=== PATIENT | female | born 1985 | race Caucasian/White ===

== ENCOUNTER 2016-07-02 11:17 | Emergency (ER) | payer SELFPAY ==
[2016-07-02 11:37] VITALS: BP 123/77
--- NOTE | 2016-07-02 12:03 | ER Document Report ---
ED Seizure - General Chief Complaint: Probable Seizure Stated Complaint: POSSIBLE SEIZURE Time Seen by Provider: 07/02/16 11:57 Notes: The patient is a 31-year-old female, past medical history seizures (on Neurontin 900 mg tid daily and CBD), presents after 6 brief witnessed generalized seizures while she was trying to obtain Medicaid today. She said that she had loss of bowel and bladder after the seizures and a brief postictal period. She did not take her Neurontin or CBD this morning until ~5 min before the seizures. Her last seizure was 2 months ago. She was following with Dr. Haro for medication adjustments. Denies head injury, chest pain, shortness of breath, nausea, vomiting, focal weakness, numbness, tingling, back pain or abdominal pain. - Related Data Allergies/Adverse Reactions: acetaminophen [From Tylenol] Allergy (Verified 11/09/15 20:57) adhesive [Adhesive] Allergy (Verified 11/09/15 20:57) aspirin [Aspirin] Allergy (Verified 11/09/15 20:57) iodine [Iodine] Allergy (Verified 11/09/15 20:57) latex [Latex] Allergy (Verified 11/09/15 20:57) metaxalone [From Skelaxin] Allergy (Verified 11/09/15 20:57) NSAIDS (Non-Steroidal Anti-Inflamma Allergy (Verified 07/02/16 11:33) Past Medical History - General Information source: Patient - Social History Smoking Status: Current Every Day Smoker Family History: Reviewed & Not Pertinent Patient has suicidal ideation: No Patient has homicidal ideation: No Endocrine Medical History: Reports: Hx Hypothyroidism Renal/ Medical History: Denies: Hx Peritoneal Dialysis Psychiatric Medical History: Reports: Hx Anxiety, Hx Bipolar Disorder, Hx Depression - bipolar, anxiety, PTSD, agorophobia, Hx Post Traumatic Stress Disorder - Immunizations Hx Diphtheria, Pertussis, Tetanus Vaccination: No Review of Systems - Review of Systems Notes: REVIEW OF SYSTEMS: CONSTITUTIONAL: -fevers, -chills EENT: -eye pain, -difficulty swallowing, -nasal congestion CARDIOVASCULAR:-chest pain, -syncope. RESPIRATORY: -cough, -SOB GASTROINTESTINAL: -abdominal pain, - nausea, -vomiting, -diarrhea GENITOURINARY: -dysuria, -hematuria MUSCULOSKELETAL: -back pain, -neck pain SKIN: -rash or skin lesions. HEMATOLOGIC: -easy bruising or bleeding. LYMPHATIC: -swollen, enlarged glands. NEUROLOGICAL: -altered mental status or loss of consciousness, -headache, + seizures PSYCHIATRIC: -anxiety, -depression. ALL OTHER SYSTEMS REVIEWED AND NEGATIVE. Physical Exam - Vital signs Vitals: Pulse Resp BP Pulse Ox 113 H 20 123/77 96 07/02/16 11:33 07/02/16 11:33 07/02/16 11:33 07/02/16 11:33 - Notes Notes: PHYSICAL EXAMINATION: GENERAL: Well-appearing, well-nourished and in no acute distress. Appears mildly anxious. HEAD: Atraumatic, normocephalic. EYES: Pupils equal round and reactive to light, extraocular movements intact, sclera anicteric, conjunctiva are normal. ENT: nares patent, oropharynx clear without exudates. Moist mucous membranes. NECK: Normal range of motion, supple without lymphadenopathy LUNGS: Breath sounds clear to auscultation bilaterally and equal. No wheezes rales or rhonchi. HEART: Tachycardia. ABDOMEN: Soft, nontender, normoactive bowel sounds. No guarding, no rebound. No masses appreciated. EXTREMITIES: Normal range of motion, no pitting or edema. No cyanosis. NEUROLOGICAL: Cranial nerves grossly intact. Normal speech, normal gait. Normal sensory, motor, and reflex exams. SKIN: Warm, Dry, normal turgor, no rashes or lesions noted. Course - Re-evaluation Re-evalutation: Patient back to baseline. Accu-Chek normal. Because she is having infrequent seizures, will not adjust her antiseizure medications. No Neurologist process control engineer today at [facility]. Provided her with follow-up at neurologist. Given return precautions. Tachycardia is from her mild anxiety. - Vital Signs Vital signs: Temp Pulse Resp BP Pulse Ox 98.1 F 113 H 20 123/77 96 07/02/16 11:38 07/02/16 11:33 07/02/16 11:33 07/02/16 11:33 07/02/16 11:33 Discharge - Discharge Clinical Impression: Recurrent seizures Condition: Good Disposition: HOME, SELF-CARE Additional Instructions: Always take your Neurontin as prescribed. Follow up with your primary care physician and neurologist. Seizure, Known Epileptic You have had a seizure. Seizures may "break through" in an epileptic due to stress of infection or injury, a change in blood chemistry, or drug and alcohol use. Another common cause is failure to take medication as prescribed. Your doctor has evaluated your situation for the likely cause of this seizure. It is important that you follow his advice concerning any medication changes and follow-up care. Further testing of anti-seizure medication levels in your blood may be necessary. If you have a taxicab driver's license, it's important that you DO NOT DRIVE until given permission by your physician. This seizure must be reported to the taxicab driver 's license bureau. Call the doctor or return if seizures recur, or if new or unusual symptoms arise -- such as severe headache, confusion, excessive sleepiness, local weakness or numbness, neck stiffness, or fever. Referrals: RUI HOFFMAN MD [ACTIVE STAFF] - Follow up as needed EDWINA PEREYRA MD [EMERITUS] - Follow up as needed CARRI RAMOS MD [ACTIVE STAFF] - Follow up as needed
== END 2016-07-02 12:16 | disposition home or self-care (01) ==
LOC: ER 11:17
DX: G40.909 Epilepsy, unspecified, not intractable, without status epilepticus (principal); F41.9 Anxiety disorder, unspecified; R00.0 Tachycardia, unspecified; F17.200 Nicotine dependence, unspecified, uncomplicated; Z79.899 Other long term (current) drug therapy; Z88.6 Allergy status to analgesic agent; Z91.048 Other nonmedicinal substance allergy status; Z91.040 Latex allergy status; Z88.8 Allergy status to other drugs, medicaments and biological substances
CPT/HCPCS: 82962; 99284

== ENCOUNTER 2016-10-08 23:30 | Emergency (ER) | payer SELFPAY ==
[2016-10-09] MEDS ORDERED: ONDANSETRON HCL INJ/PF 4 MG/2 ML SDV IV ONE (00:02)
[2016-10-09] MEDS ORDERED: HYDROMORPHONE HCL INJ/PF 2 MG/ML AMPULE IV ONE (00:02)
--- NOTE | 2016-10-09 00:02 | ER Document Report ---
ED General - General Chief Complaint: Psych Problem Stated Complaint: POSSIBLE SEIZURE Time Seen by Provider: 10/08/16 23:45 Mode of Arrival: Stretcher Information source: Patient Notes: This is a 31-year-old female with a history of a seizure disorder status post recent hospitalization at [facility] for seizures, history of anxiety and PTSD , history of ovarian cysts who presents to the emergency room after seizure at home. Patient is also concerned that she has a pelvic infection. She is on doxycycline at this time and was given IM ceftriaxone while she was hospitalized at [facility]. She also complains of dental caries. TRAVEL OUTSIDE OF THE [place] IN LAST 30 DAYS: No - HPI Onset: Last week Onset/Duration: Gradual Quality of pain: Dull Severity: Moderate Pain Level: 2 Associated symptoms: denies: Chest pain, Fever, Shortness of breath Exacerbated by: Denies Relieved by: Denies Similar symptoms previously: Yes Recently seen / treated by doctor: Yes - Related Data Allergies/Adverse Reactions: acetaminophen [From Tylenol] Allergy (Verified 11/09/15 20:57) adhesive [Adhesive] Allergy (Verified 11/09/15 20:57) aspirin [Aspirin] Allergy (Verified 11/09/15 20:57) iodine [Iodine] Allergy (Verified 11/09/15 20:57) latex [Latex] Allergy (Verified 11/09/15 20:57) metaxalone [From Skelaxin] Allergy (Verified 11/09/15 20:57) NSAIDS (Non-Steroidal Anti-Inflamma Allergy (Verified 07/02/16 11:33) Past Medical History - General Information source: Patient - Social History Smoking Status: Never Smoker Cigarette use (# per day): No Chew tobacco use (# tins/day): No Frequency of alcohol use: None Drug Abuse: None Lives with: Family Family History: Reviewed & Not Pertinent Patient has suicidal ideation: No Patient has homicidal ideation: No - Past Medical History Cardiac Medical History: Reports: None Pulmonary Medical History: Reports: None Endocrine Medical History: Reports: Hx Hypothyroidism Renal/ Medical History: Denies: Hx Peritoneal Dialysis Malignancy Medical History: Reports: None GI Medical History: Reports: None Musculoskeltal Medical History: Reports Hx Arthritis Psychiatric Medical History: Reports: Hx Anxiety, Hx Bipolar Disorder, Hx Depression - bipolar, anxiety, PTSD, agorophobia, Hx Post Traumatic Stress Disorder Traumatic Medical History: Reports: Other Infectious Medical History: Reports: None Surgical Hx: Negative - Immunizations Hx Diphtheria, Pertussis, Tetanus Vaccination: No Review of Systems - Review of Systems Constitutional: denies: Chills, Fever EENT: See HPI Cardiovascular: No symptoms reported Respiratory: No symptoms reported Gastrointestinal: No symptoms reported Genitourinary: No symptoms reported Female Genitourinary: See HPI Musculoskeletal: No symptoms reported Skin: No symptoms reported Hematologic/Lymphatic: No symptoms reported Neurological/Psychological: See HPI Physical Exam - Vital signs Notes: Physical exam: GENERAL: 31-year-old female, alert and oriented 3, no acute distress HEAD: Atraumatic, normocephalic. EYES: Pupils equal round and reactive to light, extraocular movements intact, sclera anicteric, conjunctiva are normal. ENT: TMs normal, nares patent, oropharynx clear without exudates. Moist mucous membranes. NECK: Normal range of motion, supple without lymphadenopathy or JVD. LUNGS: Breath sounds clear to auscultation bilaterally and equal. No wheezes rales or rhonchi. HEART: Regular rate and rhythm without murmurs, rubs or gallops. ABDOMEN: Soft, normoactive bowel sounds. No tenderness to palpation. No guarding, no rebound. No masses appreciated. Vaginal: External genitalia normal, scant whitish discharge in vault, cervix looks good, no cervical motion tenderness, no adnexal tenderness or adnexal masses. Vaginal exam performed in the presence of a electrician yard (the nurse). EXTREMITIES: Normal range of motion, no pitting or edema. No clubbing or cyanosis. NEUROLOGICAL: Cranial nerves II through XII grossly intact. Normal speech, normal gait. PSYCH: Normal mood, normal affect. SKIN: Warm, Dry, normal turgor, no rashes or lesions noted. Bedside ultrasound: No obvious pelvic cysts or pelvic masses with transabdominal approach. No hydronephrosis, normal gallbladder. Course - Re-evaluation Re-evalutation: 10/09/16 02:49 Patient was given IV Keppra in the emergency room and observed. She was given IV pain medicine and nausea medicine. She is done well. I discussed the results of the pelvic exam with her. She was concerned that she might have an STD: PCR test were negative. In any event , she was recently treated with ceftriaxone and is currently on doxycycline. I have recommended she follow-up with the primary care clinic: I have given the number of the [facility]. As far as her dental work: She has dental caries but no obvious acute dental infection. She is already on doxycycline. I have given her a referral to the [facility] clinic. Discharge - Discharge Clinical Impression: Seizure Condition: Stable Disposition: HOME, SELF-CARE Instructions: Seizure, Known Epileptic ([facility]) Additional Instructions: Recommendations: Rest, drink plenty of fluids. Increase in the Keppra 2000 mg twice daily. Take the pain medicine as needed. The pain medicine you're taking prescribed as a narcotic. There are several important things you should know about this medicine: 1. Taking narcotics for too long can lead to physical and mental dependence. Take this medicine only if really needed and in the lowest quantity to achieve pain relief. 2. Do not drink alcohol while on this medicine. Alcohol interacts with narcotics and the combination can be dangerous. 3. Do not drive or operate machinery while on this medicine. 4. Narcotics do cause constipation, so drink plenty of fluids and daily stool softeners. Prescriptions: Hydromorphone HCl [Dilaudid 2 mg Tablet] 2 mg PO Q4HP PRN #25 tablet PRN Reason: Levetiracetam [Keppra 500 mg Tablet] 1,000 mg PO Q12 #120 tablet Referrals: [facility] [Provider Group] - Follow up as needed [facility] [Provider Group] - Follow up as needed
[2016-10-09] MEDS ORDERED: LEVETIRACETAM 1000 MG/NACL-ISO 1,000 MG/100 ML RTUPB IV ONE (00:03)
[2016-10-09 02:28] LABS: CHLAM PCR NOT DETECTED (NOT DETECT)
[2016-10-09 03:11] VITALS: BP 119/78
== END 2016-10-09 03:10 | disposition home or self-care (01) ==
LOC: ER 23:30
DX: G40.919 Epilepsy, unspecified, intractable, without status epilepticus (principal); F41.9 Anxiety disorder, unspecified
CPT/HCPCS: 99284; 96375; 96365; 87210; 87491; 87591; J1170; J2405; J1953

== ENCOUNTER 2016-12-06 11:48 | Inpatient (IN) | payer SELFPAY ==
[2016-12-06] MEDS ORDERED: NALOXONE HCL INJ 2 MG/2 ML DISP.SYRIN ONE (11:50)
[2016-12-06] MEDS ORDERED: ETOMIDATE INJ/PF 20 MG/10 ML SDV IV ONE ×2 (11:54→15:36)
[2016-12-06] MEDS ORDERED: PROPOFOL 100 ML IV ONE ×2 (12:01→15:46)
--- NOTE | 2016-12-06 12:11 | ER Document Report ---
ED General - General Stated Complaint: POSSIBLE OVERDOSE Time Seen by Provider: 12/06/16 12:09 TRAVEL OUTSIDE OF THE [place] IN LAST 30 DAYS: No - HPI Patient complains to provider of: Overdose Notes: According EMS patient coming in for an overdose. Patient according to EMS family reported sleepy for the last few days then had a verbal altercation took a handful of pills and was found 30 minutes later to be altered. EMS upon arrival states ingestion was approximately 45 minutes prior to her arrival patient is maintaining her respiratory drive normal O2 saturation on examination however GCS is very low patient has no corneal reflexes pupils are enlarged and reactive to light. Patient is not responding to any painful stimuli patient is also nonverbal no spontaneous eye opening. No change after Narcan decision was made to intubate the patient for airway protection no family at bedside at this time therefore HPI is limited - Related Data Allergies/Adverse Reactions: acetaminophen [From Tylenol] Allergy (Verified 11/09/15 20:57) adhesive [Adhesive] Allergy (Verified 11/09/15 20:57) aspirin [Aspirin] Allergy (Verified 11/09/15 20:57) iodine [Iodine] Allergy (Verified 11/09/15 20:57) latex [Latex] Allergy (Verified 11/09/15 20:57) metaxalone [From Skelaxin] Allergy (Verified 11/09/15 20:57) NSAIDS (Non-Steroidal Anti-Inflamma Allergy (Verified 07/02/16 11:33) Home Medications: Current Home Medications Amphetamine Salts 20 mg PO Q8 12/06/16 [History] Butalb/Acetaminophen/Caffeine [Tgvxgb-Qiphlnmo-Ycpg 50-325-40] 2 tab PO Q8HP PRN 12/06/16 [History] Carisoprodol [Soma 350 Mg Tablet] 350 mg PO Q8 12/06/16 [History] Citalopram Hydrobromide [Celexa 40 mg Tablet] 40 mg PO DAILY 12/06/16 [History] Duloxetine HCl [Cymbalta] 60 mg PO Q12 12/06/16 [History] Fluconazole [Diflucan] 200 mg PO Q2 12/06/16 [History] Gabapentin [Neurontin 300 mg Capsule] 900 mg PO Q8 12/06/16 [History] Past Medical History - Social History Smoking Status: Unknown if Ever Smoked Family History: Reviewed & Not Pertinent Endocrine Medical History: Reports: Hx Hypothyroidism Renal/ Medical History: Denies: Hx Peritoneal Dialysis Musculoskeltal Medical History: Reports Hx Arthritis Psychiatric Medical History: Reports: Hx Anxiety, Hx Bipolar Disorder, Hx Depression - bipolar, anxiety, PTSD, agorophobia, Hx Post Traumatic Stress Disorder - Immunizations Hx Diphtheria, Pertussis, Tetanus Vaccination: No Review of Systems - Review of Systems -: Yes ROS unobtainable due to patient's medical condition Physical Exam - Vital signs Vitals: Resp BP Pulse Ox 18 105/66 100 12/06/16 11:52 12/06/16 11:52 12/06/16 11:52 Interpretation: Normal - General General appearance: Unresponsive - HEENT Head: Normocephalic, Atraumatic Eyes: Normal Conjunctiva: Normal Cornea: Normal Pupils: Dilated - Responsive to light - Respiratory Respiratory status: No respiratory distress Chest status: Nontender Breath sounds: Normal Chest palpation: Normal - Cardiovascular Rhythm: Regular Heart sounds: Normal auscultation Murmur: No - Abdominal Inspection: Normal Distension: No distension Bowel sounds: Normal Tenderness: Other - Abdomen soft Organomegaly: No organomegaly - Back Back: Normal, Nontender - Extremities General upper extremity: Normal inspection, Nontender, Normal color, Normal ROM , Normal temperature General lower extremity: Nontender, Normal color, Normal ROM, Normal temperature , Normal weight bearing. No: Normal inspection - Superficial lacerations to the thigh, Kala's sign - Neurological Neuro grossly intact: Yes Tadeo Coma Scale Eye Opening: None Daniels Coma Scale Verbal: None Tadeo Coma Scale Motor: Withdraws to Pain - Minimal spots after Narcan Daniels Coma Scale Total: 6 Speech: Normal - Skin Skin Temperature: Warm Skin Moisture: Dry Skin Color: Normal Course - Re-evaluation Re-evalutation: 12/06/16 12:10 Patient presents with a polysubstance overdose. Unknown substance or quantity. Patient's GCS less than 8 and therefore after no improvement with Narcan decision was made to intubate patient. Patient does have a seizure history less likely status at this time. 12/06/16 15:29 Urine drug screen positive for multiple substances with elevated Tylenol level discussed with hospitalist will admit to the ICU - Vital Signs Vital signs: Temp Pulse Resp BP Pulse Ox 19 142/98 H 100 12/06/16 15:01 12/06/16 15:01 12/06/16 15:01 - Laboratory Result Diagrams: 12/06/16 12:02 12/06/16 12:02 Laboratory results interpreted by me: 12/06/16 12/06/16 12/06/16 12:02 12:02 12:02 RBC 3.38 L Hgb 10.6 L Hct 30.1 L Plt Count 146 L Potassium 3.5 L Chloride 108 H Carbon Dioxide 21 L Lactic Acid < 0.5 L Calcium 8.3 L Creatine Kinase Total Protein 5.9 L Lipase 18.6 L Urine Ketones Salicylates < 1.0 L Acetaminophen 40 H Phenytoin 12/06/16 12/06/16 12/06/16 12:02 12:02 12:02 RBC Hgb Hct Plt Count Potassium Chloride Carbon Dioxide Lactic Acid Calcium Creatine Kinase 168 H Total Protein Lipase Urine Ketones TRACE H Salicylates Acetaminophen Phenytoin < 3.0 L Procedures - Intubation Orotracheal Airway evaluation: Normal anatomy Mallampati Classification: Class 1 Medications: Etomidate, Other - Rocuronium Intubation method: Orotracheal Blade size: 3 Equipment used: Glidescope ETT size: 7.0 ETT secured at: Lips ETT secured at (cm): 22 Breath Sounds after Intubation: Equal Post Intubation Xray: Yes Intubation Complications: No complications Critical Care Note - Critical Care Note Total time excluding time spent on procedures (mins): 35 Comments: Multiple evaluations for overdose requiring mechanical ventilation Discharge - Discharge Clinical Impression: Elevated Tylenol level Polysubstance overdose Qualifiers: Encounter type: initial encounter Injury intent: undetermined intent Qualified Code(s): T50.904A - Poisoning by unspecified drugs, medicaments and biological substances, undetermined, initial encounter Condition: Stable Disposition: ADMITTED INPATIENT Unit Admitted: ICU
[2016-12-06 12:28] LABS: VENOUS BLOOD BASE EXCESS -2.3 mmol/L; VENOUS BLOOD HCO3 22.3 mmol/L (20-32); VENOUS BLOOD PCO2 37.7 mmHg (35-63); VENOUS BLOOD PH 7.39 (7.30-7.42)
[2016-12-06 12:29] LABS: ABSOLUTE EOSINOPHILS # (AUTO) 0.1 10^3/uL (0.0-0.6); ABSOLUTE LYMPHOCYTES (AUTO) 1.3 10^3/uL (0.5-4.7); ABSOLUTE MONOCYTES (AUTO) 0.6 10^3/uL (0.1-1.4); ABSOLUTE NEUT (AUTO) 4.1 10^3/uL (1.7-8.2); BASOPHILS % (AUTO) 0.5 % (0-2); EOSINOPHILS % (AUTO) 0.8 % (0-6); HEMATOCRIT 30.1 % (36.0-47.0); HEMOGLOBIN 10.6 g/dL (12.0-15.5); HGB HCT DIFFERENCE 1.7; MEAN CORPUSCULAR HEMOGLOBIN 31.5 pg (27.0-33.4); MEAN CORPUSCULAR HGB CONC 35.4 g/dL (32.0-36.0); MEAN CORPUSCULAR VOLUME 89 fl (80-97); RED BLOOD COUNT 3.38 10^6/uL (3.72-5.28); RED CELL DISTRIBUTION WIDTH 13.5 % (11.5-14.0); SEGMENTED NEUTROPHILS % (AUTO) 67.7 % (42-78)
--- NOTE | 2016-12-06 12:41 | RADIOLOGY REPORT (SQ) ---
EXAM DESCRIPTION: CT HEAD WITHOUT COMPLETED DATE/TIME: 12/06/2016 12:28 pm REASON FOR STUDY: ams sz hx overdose COMPARISON: 10/19/2015 TECHNIQUE: Axial images acquired through the brain without intravenous contrast. Images reviewed wi th bone, brain and subdural windows. Images stored on PACS. All CT scanners at this facility use dose modulation, iterative reconstruction, and/or weight based d osing when appropriate to reduce radiation dose to as low as reasonably achievable (ALARA). [facility]: Dose Right [facility]: CareDose [facility]: Dose Right [facility]: Teradose 4D [facility]: Smart Moasis RADIATION DOSE: Up-to-date CT equipment and radiation dose reduction techniques were employed. CTDIv ol: 64.6 mGy. DLP: 1163 mGy-cm. mGy. LIMITATIONS: None. FINDINGS: VENTRICLES: Normal size and contour. CEREBRUM: No masses. No hemorrhage. No midline shift. No evidence for acute infarction. Normal gra y/white matter differentiation. No areas of low density in the white matter. CEREBELLUM: No masses. No hemorrhage. No alteration of density. No evidence for acute infarction. EXTRAAXIAL SPACES: No fluid collections. No masses. ORBITS AND GLOBE: No intra- or extraconal masses. Normal contour of globe without masses. CALVARIUM: No fracture. PARANASAL SINUSES: There is opacification of a few of the ethmoid air cells. There is thickening of the nasal mucosa on the right. SOFT TISSUES: No mass or hematoma. OTHER: No other significant finding. IMPRESSION: 1. There is no acute intracranial pathology. 2. There is mild sinus disease. EVIDENCE OF ACUTE STROKE: NO. COMMENT: Quality ID # [id number]: Final reports with documentation of one or more dose reduction techniques (e.g., Automated exposure control, adjustment of the mA and/or kV according to patient size, use of iterative reconstruction technique) TECHNICAL DOCUMENTATION: JOB ID: [id number] [employer]- All Rights Reserved
--- NOTE | 2016-12-06 12:42 | RADIOLOGY REPORT (SQ) ---
EXAM DESCRIPTION: CHEST SINGLE VIEW COMPLETED DATE/TIME: 12/06/2016 12:32 pm REASON FOR STUDY: t1 post intubation COMPARISON: Chest CT 07/04/2014 EXAM PARAMETERS: NUMBER OF VIEWS: One view. TECHNIQUE: Single frontal radiographic view of the chest acquired. RADIATION DOSE: NA LIMITATIONS: None. FINDINGS: LUNGS AND PLEURA: No opacities, masses or pneumothorax. No pleural effusion. MEDIASTINUM AND HILAR STRUCTURES: No masses. Contour normal. HEART AND VASCULAR STRUCTURES: Heart normal in size. Normal vasculature. BONES: No acute findings. HARDWARE: An endotracheal tube has its tip 4 cm above the berenice. OTHER: No other significant finding. IMPRESSION: Endotracheal tube placement. TECHNICAL DOCUMENTATION: JOB ID: [id number]
[2016-12-06 12:54] LABS: ALANINE AMINOTRANSFERASE 41 U/L (9-52); ALBUMIN 3.5 g/dL (3.5-5.0); ALKALINE PHOSPHATASE 43 U/L (38-126); ANION GAP 16 (5-19); ASPARTATE AMINO TRANSFERASE 31 U/L (14-36); BILIRUBIN,DIRECT 0.3 mg/dL (0.0-0.4); BILIRUBIN,TOTAL 0.3 mg/dL (0.2-1.3); BLOOD UREA NITROGEN 8 mg/dL (7-20); CALCIUM 8.3 mg/dL (8.4-10.2); CARBON DIOXIDE 21 mmol/L (22-30); CHLORIDE 108 mmol/L (98-107); CREATININE RESULT 0.56 mg/dL (0.52-1.25); GLUCOSE 92 mg/dL (75-110); LIPASE 18.6 U/L (23-300); POTASSIUM 3.5 mmol/L (3.6-5.0); SODIUM 144.9 mmol/L (137-145); TOTAL PROTEIN 5.9 g/dL (6.3-8.2)
[2016-12-06 13:00] LABS: ALCOHOL < 10 mg/dL (NONE DETECTED)
[2016-12-06 13:05] LABS: APPEARANCE,URINE CLEAR; BILIRUBIN,URINE NEGATIVE (NEGATIVE); GLUCOSE, URINE NEGATIVE (NEGATIVE); KETONES,URINE TRACE mg/dL (NEGATIVE); LEUKOCYTE ESTERASE,URINE NEGATIVE (NEGATIVE); NITRITE,URINE NEGATIVE (NEGATIVE); PROTEIN,URINE NEGATIVE (NEGATIVE); URINE SPECIFIC GRAVITY 1.028; UROBILINOGEN,URINE NEGATIVE mg/dL (<2.0)
[2016-12-06 13:19] LABS: URINE BARBITURATES SCREEN UNCONFIRMED POSITIVE; URINE METHADONE SCREEN NEGATIVE; URINE OPIATES LOW UNCONFIRMED POSITIVE; URINE PHENCYCLIDINE SCREEN NEGATIVE
[2016-12-06] MEDS ORDERED: PROMETHAZINE HCL 25 MG SUPP.RECT PR PRN (13:36)
[2016-12-06] MEDS ORDERED: LEVALBUTEROL HCL NEB 1.25 MG/3 ML AMPUL NEB PRN (13:36)
[2016-12-06] MEDS ORDERED: ACETYLCYSTEINE INJ 6000 MG/30 ML IV ONE (13:44)
[2016-12-06] MEDS ORDERED: PHARMACY COMMUNICATION ORDER MC NR (13:45)
[2016-12-06] MEDS: NORMAL SALINE 1000 ML 1,000 ML IV PRN ×2 (14:15→16:50)
[2016-12-06 14:16] LABS: PROTHROMBIN TIME 13.5 SEC (11.4-15.4)
[2016-12-06] MEDS: MIDAZOLAM HCL 100 ML IV PRN ×2 (14:20→19:58)
[2016-12-06] MEDS ORDERED: ENOXAPARIN SODIUM INJ 40 MG/0.4 ML DISP.SYRIN SUBCUT ONE (14:30)
[2016-12-06] MEDS ORDERED: ROCURONIUM BROMIDE INJ 50 MG/5 ML VIAL IV ONE ×3 (14:40→15:36)
[2016-12-06] MEDS ORDERED: WATER IV ONE ×6 (15:00→20:00)
[2016-12-06] MEDS ORDERED: DEXTROSE 5% IV ONE ×6 (15:00→20:00)
[2016-12-06] MEDS ORDERED: ACETYLCYSTEINE IV ONE ×6 (15:00→20:00)
[2016-12-06 15:11] LABS: ARTERIAL BLOOD BASE EXCESS -1.4 mmol/L
[2016-12-06] MEDS ORDERED: FENTANYL CITRATE INJ/PF 100 MCG/2 ML AMPUL IV PRN (15:33)
[2016-12-06] MEDS ORDERED: NALOXONE HCL INJ 2 MG/2 ML DISP.SYRIN IV ONE (15:36)
[2016-12-06] MEDS ORDERED: PROPOFOL 100 ML IV PRN (15:36)
[2016-12-06] MEDS ORDERED: VECURONIUM BROMIDE INJ 10 MG VIAL IV ONE ×2 (15:45→15:49)
--- NOTE | 2016-12-06 16:09 | PDOC H&P ---
History of Present Illness Admission Date/PCP: 12/06/16 13:36 History of Present Illness: SACHI WHITE is a 31 year old female with a reported history of borderline personality disorder, bipolar disorder, questionable history of seizures, and polysubstance abuse who presents to the emergency department obtunded after taking a handful of pills. Patient lives with her offshoring manager who reports that they had an argument and she took a handful of pills. He then activated EMS. Patient had no response with Narcan. In the emergency department she was found to be lethargic and having difficulty maintaining her airway and is intubated for airway protection. Tubing Oiler is present at bedside, he reports that for the last several days she has been "out of it". He felt that she was overmedicating. He reports that she has a history of prior suicide attempt and cutting behavior. He is referred to the hospitalist service for evaluation. Past Medical History Psychiatric Medical History: Reports: Bipolar Disorder, Depression - bipolar, anxiety, PTSD, agorophobia, Other - Borderline personality disorder Hematology: Reports: Anemia Past Surgical History Past Surgical History: Reports: Orthopedic Surgery - Shoulder surgery Social History Smoking Status: Current Every Day Smoker Frequency of Alcohol Use: Occasional Hx Recreational Drug Use: Yes Drugs: Marijuana Hx Prescription Drug Abuse: No - Advance Directive Resuscitation Status: Full Code Surrogate healthcare decision maker:: Medically legally the patient's estranged Isai White [phone] Family History Family History: None Family History: Unable to obtain Parental Family History Reviewed: No Children Family History Reviewed: No Sibling(s) Family History Reviewed.: No Medication/Allergy Home Medications: Amphetamine Salts 20 mg PO Q8 12/06/16 Butalb/Acetaminophen/Caffeine [Zmvjpa-Lcdqmuxi-Xfsu 50-325-40] 2 tab PO Q8HP PRN 12/06/16 Carisoprodol [Soma 350 Mg Tablet] 350 mg PO Q8 12/06/16 Citalopram Hydrobromide [Celexa 40 mg Tablet] 40 mg PO DAILY 12/06/16 Duloxetine HCl [Cymbalta] 60 mg PO Q12 12/06/16 Fluconazole [Diflucan] 200 mg PO Q2 12/06/16 Gabapentin [Neurontin 300 mg Capsule] 900 mg PO Q8 12/06/16 Allergies/Adverse Reactions: acetaminophen [From Tylenol] Allergy (Verified 11/09/15 20:57) adhesive [Adhesive] Allergy (Verified 11/09/15 20:57) aspirin [Aspirin] Allergy (Verified 11/09/15 20:57) iodine [Iodine] Allergy (Verified 11/09/15 20:57) latex [Latex] Allergy (Verified 11/09/15 20:57) metaxalone [From Skelaxin] Allergy (Verified 11/09/15 20:57) NSAIDS (Non-Steroidal Anti-Inflamma Allergy (Verified 07/02/16 11:33) Review of Systems ROS unobtainable: Due to endotracheal tube Physical Exam Vital Signs: Temp Pulse Resp BP Pulse Ox 19 142/98 H 100 12/06/16 15:01 12/06/16 15:01 12/06/16 15:01 General appearance: PRESENT: mild distress, well-developed, well-nourished Head exam: PRESENT: atraumatic, normocephalic Eye exam: PRESENT: conjunctiva pink, PERRLA. ABSENT: conjunctival injection, nystagmus, scleral icterus Ear exam: PRESENT: normal external ear exam Mouth exam: PRESENT: moist, tongue midline Throat exam: PRESENT: other - Endotracheal tube in place Neck exam: ABSENT: carotid bruit, JVD, lymphadenopathy, thyromegaly, tracheal deviation Respiratory exam: PRESENT: clear to auscultation janki, symmetrical, tachypnea, unlabored. ABSENT: rales, rhonchi, wheezes Cardiovascular exam: PRESENT: RRR, +S1, +S2. ABSENT: diastolic murmur, rubs, systolic murmur Pulses: PRESENT: normal dorsalis pedis pul Vascular exam: PRESENT: normal capillary refill GI/Abdominal exam: PRESENT: hypoactive bowel sounds, normal bowel sounds, soft. ABSENT: distended, guarding, mass, Murcia's sign, organolmegaly, rebound, tenderness Rectal exam: PRESENT: deferred Gentrourinary exam: PRESENT: indwelling catheter, other - Normal external female genitalia Extremities exam: PRESENT: full ROM. ABSENT: calf tenderness, clubbing, pedal edema Neurological exam: PRESENT: other - Intubated and sedated Psychiatric exam: PRESENT: suicidal ideation, other - Intubated and sedated Skin exam: PRESENT: dry, intact, warm, other - Scars bilateral thighs. ABSENT: cyanosis, rash Results Laboratory Results: 12/06/16 14:50 Carbonic Acid 1.01 L HCO3/H2CO3 Ratio 21:1 ABG pH 7.44 ABG pCO2 33.4 L ABG pO2 147.3 H ABG HCO3 22.2 ABG O2 Saturation 99.0 H ABG Base Excess -1.4 FiO2 30% 12/06/16 12/06/16 12/06/16 12:02 12:02 12:02 WBC 6.0 Hgb 10.6 L Plt Count 146 L INR Potassium 3.5 L Carbon Dioxide 21 L Magnesium AST 31 ALT 41 Alkaline Phosphatase 43 Creatine Kinase Troponin I Total Protein 5.9 L Albumin 3.5 TSH Serum HCG, Qual Salicylates < 1.0 L Urine Opiates Screen Urine Methadone Screen Acetaminophen 40 H Ur Barbiturates Screen Phenytoin Levetiracetam Pending Ur Phencyclidine Scrn Ur Amphetamines Screen U Amphetamines Confirm U Benzodiazepines Scrn Urine Cocaine Screen U Marijuana (THC) Screen Serum Alcohol < 10 12/06/16 12/06/16 12/06/16 12:02 12:02 12:02 WBC Hgb Plt Count INR Potassium Carbon Dioxide Magnesium AST ALT Alkaline Phosphatase Creatine Kinase Troponin I Total Protein Albumin TSH Serum HCG, Qual NEGATIVE Salicylates Urine Opiates Screen UNCONFIRMED POSITIVE Urine Methadone Screen NEGATIVE Acetaminophen Ur Barbiturates Screen UNCONFIRMED POSITIVE Phenytoin < 3.0 L Levetiracetam Ur Phencyclidine Scrn NEGATIVE Ur Amphetamines Screen U Amphetamines Confirm U Benzodiazepines Scrn UNCONFIRMED POSITIVE Urine Cocaine Screen NEGATIVE U Marijuana (THC) Screen UNCONFIRMED POSITIVE Serum Alcohol 12/06/16 12/06/16 12/06/16 12:02 12:02 12:02 WBC Hgb Plt Count INR Potassium Carbon Dioxide Magnesium 2.0 AST ALT Alkaline Phosphatase Creatine Kinase 168 H Troponin I Total Protein Albumin TSH 1.50 Serum HCG, Qual Salicylates Urine Opiates Screen Urine Methadone Screen Acetaminophen Ur Barbiturates Screen Phenytoin Levetiracetam Ur Phencyclidine Scrn Ur Amphetamines Screen U Amphetamines Confirm Pending U Benzodiazepines Scrn Urine Cocaine Screen U Marijuana (THC) Screen Serum Alcohol 12/06/16 12/06/16 12:02 12:02 WBC Hgb Plt Count INR 0.96 Potassium Carbon Dioxide Magnesium AST ALT Alkaline Phosphatase Creatine Kinase Troponin I < 0.012 Total Protein Albumin TSH Serum HCG, Qual Salicylates Urine Opiates Screen Urine Methadone Screen Acetaminophen Ur Barbiturates Screen Phenytoin Levetiracetam Ur Phencyclidine Scrn Ur Amphetamines Screen U Amphetamines Confirm U Benzodiazepines Scrn Urine Cocaine Screen U Marijuana (THC) Screen Serum Alcohol Impressions: Chest X-Ray 12/06/16 00:00 IMPRESSION: Endotracheal tube placement. Head CT 12/06/16 12:10 IMPRESSION: 1. There is no acute intracranial pathology. 2. There is mild sinus disease. EVIDENCE OF ACUTE STROKE: NO. Assessment & Plan - Diagnosis (1) Polysubstance overdose Qualifiers: Encounter type: initial encounter Injury intent: undetermined intent Qualified Code(s): T50.904A - Poisoning by unspecified drugs, medicaments and biological substances, undetermined, initial encounter Is this a current diagnosis for this admission?: Yes Plan: Patient overdosed on "handful of pills. Patient is positive for polysubstances including Adderall, Xanax, Fioricet and opiates. She has a prior prescription for Dilaudid from an emergency department physician. We will treat patient's Tylenol level and will follow this in 4 hours. Check a CK and ionized calcium. Suspect this could be a gabapentin overdose or a Soma overdose. I am quite concerned about the number and kind of medications that this patient is on at such a young age. I have copied this to her primary care physician. (2) Intentional acetaminophen overdose Qualifiers: Encounter type: initial encounter Qualified Code(s): T39.1X2A - Poisoning by 4-Aminophenol derivatives, intentional self-harm, initial encounter Is this a current diagnosis for this admission?: Yes Plan: Patient's initial Tylenol level approximately 1 hour from ingestion was 40. Will begin patient on 3 bag protocol. (3) Suicide attempt Is this a current diagnosis for this admission?: Yes Plan: Patient will be placed on IVC. Consult psychology (4) Acute respiratory failure Qualifiers: Respiratory failure complication: unspecified whether with hypoxia or hypercapnia Qualified Code(s): J96.00 - Acute respiratory failure, unspecified whether with hypoxia or hypercapnia Is this a current diagnosis for this admission?: Yes Plan: Patient was unable to maintain her airway and was intubated for airway protection. Continue intubation. Obtain ABG. Will consult pulmonary medicine. Nebulized treatments as needed (5) Borderline personality disorder Is this a current diagnosis for this admission?: Yes Plan: Appreciate psychology input (6) Possible seizure disorder Is this a current diagnosis for this admission?: Yes Plan: Patient has a possible seizure disorder. However of all of her medications that she had taken upon quick bedside evaluation appears as though she has not taken her Keppra as prescribed in fact it appears as though she is not taking it at all. We will check a Keppra level and place patient on seizure precautions. (7) Tobacco abuse Is this a current diagnosis for this admission?: Yes (8) Marijuana abuse Is this a current diagnosis for this admission?: Yes Plan: UDS positive - Time Time Spent: Greater than 70 Minutes Critical Time spent with patient: 35 or more minutes Medications reviewed and adjusted accordingly: Yes Anticipated discharge: Other
[2016-12-06] MEDS ORDERED: LORAZEPAM INJ 2 MG/1 ML VIAL IV PRN (16:10)
--- NOTE | 2016-12-06 16:13 | PSYCHOLOGICAL NOTE ---
Psych Note - Psych Note Psych Note: Attempted to conduct check in with patient who is a 31-year-old female admitted to [facility] hospitalist services due to intentional polypharm overdose. Patient was initially intubated and moved to ICU to protect her airway; however, was extubated yesterday. Patient is seen today post ictal and is sleeping. Patient reportedly suffered a seizure this morning witnessed by medical staff and patient's roofer apprentice. Note there is a 2 page hand written goodbye letter to her sister in her chart presumably written prior to the overdose. Patient was not arousable to calling her name to engage in communication. She is recommended to continue under involuntary commitment, due to her hand written suicide notes suggesting intent. Will seek placement in a 24-hour facility once medically cleared. - Attempted to conduct check in with patient who is a 31-year-old female admitted to [facility] hospitalist services in the ICU. Notes patient was extubated this morning. Patient does complain of a sore body and sore throat raspy voice, and a twitching eye. Patient states she does not remember what happened, and only knows what her father and sister told her this morning. Patient states she only knows she swallowed pills but does not know why or how much. Note there is a 2 page hand written goodbye letter to her sister in her chart presumably written prior to the overdose. At this time patient is struggling to communicate efficaciously. She is recommended to continue under involuntary commitment. Will seek placement in a 24-hour facility once medically cleared. Patient is a 31-year-old female who presented to [facility] ER via EMS due to polypharmacy overdose. Patient has been intubated to protect her airway. Patient will be reevaluated once extubated and able to verbally communicate. Patient's roofer apprentice, Malcolm [phone] states the patient has been residing in his home with his family since February. Acoustic Warfare Analyst reports over the past few days he is observed the patient seemingly altered. He states he confronted the patient about her presentation today and told her that she would no longer be able to stay in their home. Acoustic Warfare Analyst states he then observed the patient attempted to ingest large quantities of pills and he called 911. Acoustic Warfare Analyst states the patient's aunt last week which she did seem to handle fairly well. He reports they were extremely close, but patient was appropriate with her grief and did follow up with [facility] [place]. He states her medications were managed by primary care provider in [facility]; however, patient was scheduled to see the psychiatrist at [facility] 16 December. Past reports the patient and her have been since February. He states that he has been entered drug rehab and when he returned they . Brandyn does report that he contacted patient's to make aware as they are still legally as well as patient's father in patient' s mother. Past reports the patient's father has custody and is raising patient' s youngest son. Father will reportedly visit later today once he finds childcare for the son. At this time given the unknown intent of patient's polypharmacy overdose, it is recommended she be placed under involuntary commitment for further evaluation and disposition. Also with Dr. Staton in regards to the care and management of this patient. Patient has been admitted to ICU. Hospitalist states she is in agreement with disposition and recommendations at this time.
[2016-12-06] MEDS ORDERED: INFLUENZA ADLT QUAD (36MOS+) 2017-18 VAC 0.5 ML SYR IM PRN (17:38)
[2016-12-06] MEDS ORDERED: HALOPERIDOL LACTATE INJ 5 MG/1 ML VIAL IV SCH (18:00)
[2016-12-06] MEDS: LACTULOSE SYRUP 20 GM/30 ML UDCUP NG SCH ×2 (18:27→21:50)
[2016-12-06] MEDS: HALOPERIDOL LACTATE INJ 5 MG/1 ML VIAL IV PRN ×2 (18:27→21:58)
--- NOTE | 2016-12-06 18:31 | EKG REPORT ---
SEVERITY:- ABNORMAL ECG - ECTOPIC ATRIAL RHYTHM BORDERLINE T ABNORMALITIES, INFERIOR LEADS BORDERLINE PROLONGED QT INTERVAL : Confirmed by: Eboni Allen 06-Dec-2016 18:30:39
[2016-12-06] MEDS: PROPOFOL 100 ML IV PRN (19:59)
[2016-12-06] MEDS ORDERED: FAMOTIDINE INJ/PF 20 MG/2 ML SDV IV SCH (22:00)
[2016-12-07] MEDS: NORMAL SALINE 1000 ML 1,000 ML IV PRN (00:03)
[2016-12-07] MEDS: PROPOFOL 100 ML IV PRN ×2 (01:17→07:35)
[2016-12-07] MEDS: MIDAZOLAM HCL 100 ML IV PRN (01:17)
[2016-12-07] MEDS: HALOPERIDOL LACTATE INJ 5 MG/1 ML VIAL IV PRN ×2 (02:26→06:08)
[2016-12-07 04:51] LABS: ALANINE AMINOTRANSFERASE 42 U/L (9-52); ALBUMIN 2.8 g/dL (3.5-5.0); ALKALINE PHOSPHATASE 34 U/L (38-126); ANION GAP 12 (5-19); ASPARTATE AMINO TRANSFERASE 21 U/L (14-36); BILIRUBIN,DIRECT 0.2 mg/dL (0.0-0.4); BILIRUBIN,TOTAL 0.2 mg/dL (0.2-1.3); BLOOD UREA NITROGEN 2 mg/dL (7-20); CALCIUM 7.9 mg/dL (8.4-10.2); CARBON DIOXIDE 18 mmol/L (22-30); CHLORIDE 111 mmol/L (98-107); CREATINE KINASE 112 U/L (30-135); CREATININE RESULT 0.45 mg/dL (0.52-1.25); GLUCOSE 82 mg/dL (75-110); MAGNESIUM 1.8 mg/dL (1.6-2.3); PHOSPHORUS 3.2 mg/dL (2.5-4.5); SODIUM 140.9 mmol/L (137-145); TRIGLYCERIDES 60 mg/dL (<150)
[2016-12-07] MEDS ORDERED: POTASSIUM CHLORIDE 20 MEQ/15 ML UDCUP NG ONE (06:15)
[2016-12-07 06:40] LABS: ABSOLUTE EOSINOPHILS # (AUTO) 0.1 10^3/uL (0.0-0.6); ABSOLUTE MONOCYTES (AUTO) 0.4 10^3/uL (0.1-1.4); ABSOLUTE NEUT (AUTO) 3.5 10^3/uL (1.7-8.2); BASOPHILS % (AUTO) 0.3 % (0-2); EOSINOPHILS % (AUTO) 1.1 % (0-6); HEMATOCRIT 22.6 % (36.0-47.0); HGB HCT DIFFERENCE 1.4; MEAN CORPUSCULAR HEMOGLOBIN 32.3 pg (27.0-33.4); MEAN CORPUSCULAR HGB CONC 35.4 g/dL (32.0-36.0); MEAN CORPUSCULAR VOLUME 91 fl (80-97); MONOCYTES % (AUTO) 8.1 % (3-13); RED BLOOD COUNT 2.48 10^6/uL (3.72-5.28); RED CELL DISTRIBUTION WIDTH 13.5 % (11.5-14.0); SEGMENTED NEUTROPHILS % (AUTO) 70.5 % (42-78)
[2016-12-07] MEDS: POTASSIUM CHLORIDE 20 MEQ/50 ML RTU IV SCH ×2 (06:52→07:31)
[2016-12-07 06:58] LABS: ARTERIAL BLOOD BASE EXCESS -3.3 mmol/L; ARTERIAL BLOOD O2 SATURATION 97.8 % (94-98)
--- NOTE | 2016-12-07 07:13 | RADIOLOGY REPORT (SQ) ---
EXAM DESCRIPTION: CHEST SINGLE VIEW COMPLETED DATE/TIME: 12/07/2016 6:50 am REASON FOR STUDY: resp failure COMPARISON: Chest x-ray 12/06/2016. EXAM PARAMETERS: NUMBER OF VIEWS: One view TECHNIQUE: Single frontal radiograph of the chest. RADIATION DOSE: N/A LIMITATIONS: None. FINDINGS: TEMPORARY SUPPORT DEVICES:ETT in expected location. NG tube courses below the left annabel-d iaphragm in to the stomach. The tip of the right IJ central line is obscured. LUNGS AND PLEURA: No consolidation, pleural effusion or pneumothorax. MEDIASTINUM AND HILAR STRUCTURES: No masses. Contour normal. HEART AND VASCULAR STRUCTURES: Heart size normal. No overt vascular congestion. BONES: No acute findings. IMPRESSION: No acute radiographic finding in the chest. TECHNICAL DOCUMENTATION: JOB ID: [id number] [employer]- All Rights Reserved
[2016-12-07] MEDS ORDERED: (PENDING PHARMACY ID) (Citalopram Hydrobromide [Celexa 40 Mg Tablet] 40 MG) PO SCH (10:00)
[2016-12-07] MEDS ORDERED: ENOXAPARIN SODIUM INJ 40 MG/0.4 ML DISP.SYRIN SUBCUT SCH (10:00)
--- NOTE | 2016-12-07 10:04 | PDOC PROGRESS REPORT ---
Subjective Progress Note for:: 12/07/16 Subjective:: Patient intubated. Nursing states that patient has done well overnight. Nursing was made aware of the plan to extubate patient this morning. Patient was following commands as sedation was being weaned. Nursing reported that patient has been able to communicate with her on propofol and Versed. Physical Exam Vital Signs: Temp Pulse Resp BP Pulse Ox 99.5 F 102 H 22 H 133/90 H 100 12/07/16 07:56 12/07/16 08:20 12/07/16 08:20 12/07/16 08:20 12/07/16 08:20 Intake & Output 12/06/16 12/07/16 12/08/16 06:59 06:59 06:59 Intake Total 4680 70 Output Total 2915 760 Balance 1765 -690 Weight 59.7 kg General appearance: PRESENT: no acute distress, well-developed, well-nourished Head exam: PRESENT: atraumatic, normocephalic Eye exam: PRESENT: conjunctiva pink, EOMI. ABSENT: scleral icterus Ear exam: PRESENT: normal external ear exam Mouth exam: PRESENT: moist, tongue midline Neck exam: ABSENT: carotid bruit, JVD, lymphadenopathy, thyromegaly Respiratory exam: PRESENT: clear to auscultation janki. ABSENT: rales, rhonchi, wheezes Cardiovascular exam: PRESENT: RRR. ABSENT: diastolic murmur, rubs, systolic murmur Pulses: PRESENT: normal dorsalis pedis pul Vascular exam: PRESENT: normal capillary refill GI/Abdominal exam: PRESENT: normal bowel sounds, soft. ABSENT: distended, guarding, mass, organolmegaly, rebound, tenderness Rectal exam: PRESENT: deferred Extremities exam: PRESENT: full ROM. ABSENT: calf tenderness, clubbing, pedal edema Neurological exam: PRESENT: alert, awake, oriented to person, CN II-XII grossly intact, other - Nods head appropriately to yes or no questions. ABSENT: motor sensory deficit Psychiatric exam: PRESENT: appropriate affect, normal mood. ABSENT: homicidal ideation, suicidal ideation Skin exam: PRESENT: dry, intact, warm. ABSENT: cyanosis, rash Results Laboratory Results: 12/07/16 06:20 12/07/16 03:53 12/06/16 12/06/16 12/07/16 14:50 16:00 03:53 WBC RBC Hgb Hct MCV MCH MCHC RDW Plt Count Seg Neutrophils % Lymphocytes % Monocytes % Eosinophils % Basophils % Absolute Neutrophils Absolute Lymphocytes Absolute Monocytes Absolute Eosinophils Absolute Basophils Carbonic Acid 1.01 L HCO3/H2CO3 Ratio 21:1 ABG pH 7.44 ABG pCO2 33.4 L ABG pO2 147.3 H ABG HCO3 22.2 ABG O2 Saturation 99.0 H ABG Base Excess -1.4 FiO2 30% Sodium 140.9 Potassium 3.0 L* Chloride 111 H Carbon Dioxide 18 L Anion Gap 12 BUN 2 L Creatinine 0.45 L Est GFR ( Amer) > 60 Est GFR (Non-Af Amer) > 60 Glucose 82 Calcium 7.9 L Ionized Calcium Eyad 1.04 L Phosphorus 3.2 Magnesium 1.8 Total Bilirubin 0.2 AST 21 ALT 42 Alkaline Phosphatase 34 L Total Protein 5.0 L Albumin 2.8 L Triglycerides 60 12/07/16 12/07/16 12/07/16 03:53 03:53 06:20 WBC Cancelled 5.0 RBC Cancelled 2.48 L Hgb Cancelled 8.0 L D Hct Cancelled 22.6 L MCV Cancelled 91 MCH Cancelled 32.3 MCHC Cancelled 35.4 RDW Cancelled 13.5 Plt Count Cancelled 96 L Seg Neutrophils % Cancelled 70.5 Lymphocytes % Cancelled 20.0 Monocytes % Cancelled 8.1 Eosinophils % Cancelled 1.1 Basophils % Cancelled 0.3 Absolute Neutrophils Cancelled 3.5 Absolute Lymphocytes Cancelled 1.0 Absolute Monocytes Cancelled 0.4 Absolute Eosinophils Cancelled 0.1 Absolute Basophils Cancelled 0.0 Carbonic Acid Cancelled HCO3/H2CO3 Ratio Cancelled ABG pH Cancelled ABG pCO2 Cancelled ABG pO2 Cancelled ABG HCO3 Cancelled ABG O2 Saturation Cancelled ABG Base Excess Cancelled FiO2 Cancelled Sodium Potassium Chloride Carbon Dioxide Anion Gap BUN Creatinine Est GFR ( Amer) Est GFR (Non-Af Amer) Glucose Calcium Ionized Calcium Eyad Phosphorus Magnesium Total Bilirubin AST ALT Alkaline Phosphatase Total Protein Albumin Triglycerides 12/07/16 06:35 WBC RBC Hgb Hct MCV MCH MCHC RDW Plt Count Seg Neutrophils % Lymphocytes % Monocytes % Eosinophils % Basophils % Absolute Neutrophils Absolute Lymphocytes Absolute Monocytes Absolute Eosinophils Absolute Basophils Carbonic Acid 0.97 L HCO3/H2CO3 Ratio 21:1 ABG pH 7.42 ABG pCO2 32.1 L ABG pO2 100.5 H ABG HCO3 20.4 ABG O2 Saturation 97.8 ABG Base Excess -3.3 FiO2 21% Sodium Potassium Chloride Carbon Dioxide Anion Gap BUN Creatinine Est GFR ( Amer) Est GFR (Non-Af Amer) Glucose Calcium Ionized Calcium Eyad Phosphorus Magnesium Total Bilirubin AST ALT Alkaline Phosphatase Total Protein Albumin Triglycerides 12/06/16 12/07/16 12/07/16 19:34 01:32 03:53 Creatine Kinase 112 Troponin I < 0.012 < 0.012 Impressions: Head CT 12/06/16 12:10 IMPRESSION: 1. There is no acute intracranial pathology. 2. There is mild sinus disease. EVIDENCE OF ACUTE STROKE: NO. Chest X-Ray 12/07/16 06:00 IMPRESSION: No acute radiographic finding in the chest. Assessment & Plan - Diagnosis (1) Acute respiratory failure Qualifiers: Respiratory failure complication: unspecified whether with hypoxia or hypercapnia Qualified Code(s): J96.00 - Acute respiratory failure, unspecified whether with hypoxia or hypercapnia Is this a current diagnosis for this admission?: Yes Plan: Patient extubated this morning. Patient doing well on nasal cannula. Chest x- ray demonstrates no evidence of infiltrate. Will continue to assess throughout today. (2) Borderline personality disorder Is this a current diagnosis for this admission?: Yes Plan: Psych consult placed. (3) Intentional acetaminophen overdose Qualifiers: Encounter type: initial encounter Qualified Code(s): T39.1X2A - Poisoning by 4-Aminophenol derivatives, intentional self-harm, initial encounter Is this a current diagnosis for this admission?: Yes Plan: Patient receiving acetylcysteine. Will monitor patient's liver enzymes. (4) Marijuana abuse Is this a current diagnosis for this admission?: Yes Plan: Patient will need to seek outpatient rehab treatment. (5) Polysubstance overdose Qualifiers: Encounter type: initial encounter Injury intent: undetermined intent Qualified Code(s): T50.904A - Poisoning by unspecified drugs, medicaments and biological substances, undetermined, initial encounter Is this a current diagnosis for this admission?: Yes Plan: Patient will need to seek outpatient rehab treatment. Psych has been consulted. (6) Possible seizure disorder Is this a current diagnosis for this admission?: Yes Plan: Patient seizure activity most likely secondary to withdrawal. Patient supposed to be on Keppra at home however has not been taking medication per documentation. Patient's home medication list does not document Keppra has been home medication. (7) Suicide attempt Is this a current diagnosis for this admission?: Yes Plan: Patient has written a suicide letter. Psychiatry to evaluate patient. (8) Tobacco abuse Is this a current diagnosis for this admission?: Yes Plan: Encourage discontinuation patient of tobacco products (9) Thrombocytopenia Is this a current diagnosis for this admission?: Yes Plan: We will discontinue Lovenox. Will write for SCDs. Blood cultures demonstrating no evidence of growth. Will evaluate for signs of infection. (10) Iron deficiency anemia Is this a current diagnosis for this admission?: Yes Plan: Do anemia workup. (11) Hypokalemia Is this a current diagnosis for this admission?: Yes Plan: Will give potassium replacement. Will check BMP and mag in a.m. - Time Time Spent with patient: 25-34 minutes
[2016-12-07 11:50] LABS: FOLATE > 20.00 ng/mL (>2.76)
[2016-12-07 16:14] LABS: ANION GAP 12 (5-19); CALCIUM 7.9 mg/dL (8.4-10.2); CARBON DIOXIDE 20 mmol/L (22-30); CHLORIDE 110 mmol/L (98-107); CREATININE RESULT 0.43 mg/dL (0.52-1.25); GLUCOSE 96 mg/dL (75-110); POTASSIUM 3.4 mmol/L (3.6-5.0); SODIUM 141.8 mmol/L (137-145)
[2016-12-07 16:15] LABS: BLOOD UREA NITROGEN < 2 mg/dL (7-20)
[2016-12-07] MEDS: NAPROXEN 250 MG TABLET PO PRN (16:32)
[2016-12-07] MEDS: DULOXETINE HCL 30 MG CAPSULE.DR PO SCH (21:49)
[2016-12-08 05:52] LABS: ALANINE AMINOTRANSFERASE 40 U/L (9-52); ALBUMIN 3.4 g/dL (3.5-5.0); ALKALINE PHOSPHATASE 44 U/L (38-126); ANION GAP 11 (5-19); ASPARTATE AMINO TRANSFERASE 27 U/L (14-36); BILIRUBIN,DIRECT 0.4 mg/dL (0.0-0.4); BILIRUBIN,TOTAL 0.5 mg/dL (0.2-1.3); BLOOD UREA NITROGEN 3 mg/dL (7-20); CALCIUM 8.6 mg/dL (8.4-10.2); CARBON DIOXIDE 23 mmol/L (22-30); CHLORIDE 110 mmol/L (98-107); CREATININE RESULT 0.46 mg/dL (0.52-1.25); GLUCOSE 91 mg/dL (75-110); POTASSIUM 3.5 mmol/L (3.6-5.0); TOTAL PROTEIN 5.9 g/dL (6.3-8.2)
[2016-12-08] MEDS: LANSOPRAZOLE 30 MG TAB.RAP.DR PO SCH (06:41)
[2016-12-08 07:46] LABS: ABSOLUTE EOSINOPHILS # (AUTO) 0.1 10^3/uL (0.0-0.6); ABSOLUTE LYMPHOCYTES (AUTO) 1.8 10^3/uL (0.5-4.7); ABSOLUTE MONOCYTES (AUTO) 0.5 10^3/uL (0.1-1.4); ABSOLUTE NEUT (AUTO) 3.1 10^3/uL (1.7-8.2); BASOPHILS % (AUTO) 0.5 % (0-2); EOSINOPHILS % (AUTO) 1.5 % (0-6); HEMATOCRIT 31.2 % (36.0-47.0); HGB HCT DIFFERENCE 1.8; LYMPHOCYTES % (AUTO) 33.1 % (13-45); MEAN CORPUSCULAR HEMOGLOBIN 31.4 pg (27.0-33.4); MEAN CORPUSCULAR HGB CONC 35.3 g/dL (32.0-36.0); MEAN CORPUSCULAR VOLUME 89 fl (80-97); MONOCYTES % (AUTO) 8.4 % (3-13); RED BLOOD COUNT 3.51 10^6/uL (3.72-5.28); RED CELL DISTRIBUTION WIDTH 13.3 % (11.5-14.0); SEGMENTED NEUTROPHILS % (AUTO) 56.5 % (42-78); WHITE BLOOD COUNT 5.4 10^3/uL (4.0-10.5)
--- NOTE | 2016-12-08 09:06 | RADIOLOGY REPORT (SQ) ---
EXAM DESCRIPTION: CHEST SINGLE VIEW COMPLETED DATE/TIME: 12/08/2016 8:54 am REASON FOR STUDY: resp failure COMPARISON: CT chest 07/04/2014 Chest films 12/06/2016, 12/07/2016 EXAM PARAMETERS: NUMBER OF VIEWS: One view. TECHNIQUE: Single frontal radiographic view of the chest acquired. RADIATION DOSE: NA LIMITATIONS: None. FINDINGS: LUNGS AND PLEURA: No opacities, masses or pneumothorax. No pleural effusion. MEDIASTINUM AND HILAR STRUCTURES: No masses. Contour normal. HEART AND VASCULAR STRUCTURES: Heart normal in size. Normal vasculature. BONES: No acute findings. HARDWARE: None in the chest. OTHER: No other significant finding. IMPRESSION: NO ACUTE RADIOGRAPHIC FINDING IN THE CHEST. TECHNICAL DOCUMENTATION: JOB ID: [id number]
[2016-12-08] MEDS ORDERED: LEVETIRACETAM 1000 MG/NACL-ISO 1,000 MG/100 ML RTUPB IV ONE (10:00)
[2016-12-08] MEDS: IRON SUCROSE COMPLEX INJ/PF 100 MG/5 ML SDV IV SCH (10:13)
[2016-12-08] MEDS: DULOXETINE HCL 30 MG CAPSULE.DR PO SCH ×2 (10:15→23:24)
[2016-12-08] MEDS: CITALOPRAM HYDROBROMIDE 20 MG TABLET PO SCH (10:15)
--- NOTE | 2016-12-08 14:27 | PDOC PROGRESS REPORT ---
Subjective Progress Note for:: 12/08/16 Subjective:: Pt appeared to have seizure activity. Pt paster was present who states that pt has been on keppra. Physical Exam Vital Signs: Temp Pulse Resp BP Pulse Ox 98.8 F 93 16 134/67 H 95 12/08/16 11:35 12/08/16 14:00 12/08/16 12:24 12/08/16 11:35 12/08/16 12:24 Intake & Output 12/07/16 12/08/16 12/09/16 06:59 06:59 06:59 Intake Total 4680 3038 Output Total 2915 5020 Balance 1765 -1981 Weight 59.7 kg 60.9 kg General appearance: PRESENT: no acute distress, well-developed, well-nourished Head exam: PRESENT: atraumatic, normocephalic Eye exam: PRESENT: conjunctiva pink, EOMI. ABSENT: scleral icterus Ear exam: PRESENT: normal external ear exam Mouth exam: PRESENT: moist, tongue midline Neck exam: ABSENT: carotid bruit, JVD, lymphadenopathy, thyromegaly Respiratory exam: PRESENT: clear to auscultation janki. ABSENT: rales, rhonchi, wheezes Cardiovascular exam: PRESENT: RRR. ABSENT: diastolic murmur, rubs, systolic murmur Pulses: PRESENT: normal dorsalis pedis pul Vascular exam: PRESENT: normal capillary refill GI/Abdominal exam: PRESENT: normal bowel sounds, soft. ABSENT: distended, guarding, mass, organolmegaly, rebound, tenderness Rectal exam: PRESENT: deferred Extremities exam: PRESENT: full ROM. ABSENT: calf tenderness, clubbing, pedal edema Neurological exam: PRESENT: alert, awake, oriented to person, oriented to place , oriented to time, oriented to situation, CN II-XII grossly intact. ABSENT: motor sensory deficit Psychiatric exam: PRESENT: appropriate affect, normal mood. ABSENT: homicidal ideation, suicidal ideation Skin exam: PRESENT: dry, intact, warm. ABSENT: cyanosis, rash Results Laboratory Results: 12/08/16 06:52 12/08/16 03:59 12/07/16 12/07/16 12/08/16 03:53 15:45 03:59 WBC Cancelled RBC Cancelled Hgb Cancelled Hct Cancelled MCV Cancelled MCH Cancelled MCHC Cancelled RDW Cancelled Plt Count Cancelled Seg Neutrophils % Cancelled Lymphocytes % Cancelled Monocytes % Cancelled Eosinophils % Cancelled Basophils % Cancelled Absolute Neutrophils Cancelled Absolute Lymphocytes Cancelled Absolute Monocytes Cancelled Absolute Eosinophils Cancelled Absolute Basophils Cancelled Sodium 141.8 Potassium 3.4 L Chloride 110 H Carbon Dioxide 20 L Anion Gap 12 BUN < 2 L Creatinine 0.43 L Est GFR ( Amer) > 60 Est GFR (Non-Af Amer) > 60 Glucose 96 Calcium 7.9 L Magnesium Transferrin 178 L Total Bilirubin AST ALT Alkaline Phosphatase Total Protein Albumin 12/08/16 12/08/16 03:59 06:52 WBC 5.4 RBC 3.51 L Hgb 11.0 L D Hct 31.2 L MCV 89 MCH 31.4 MCHC 35.3 RDW 13.3 Plt Count 148 L Seg Neutrophils % 56.5 Lymphocytes % 33.1 Monocytes % 8.4 Eosinophils % 1.5 Basophils % 0.5 Absolute Neutrophils 3.1 Absolute Lymphocytes 1.8 Absolute Monocytes 0.5 Absolute Eosinophils 0.1 Absolute Basophils 0.0 Sodium 144.0 Potassium 3.5 L Chloride 110 H Carbon Dioxide 23 Anion Gap 11 BUN 3 L Creatinine 0.46 L Est GFR ( Amer) > 60 Est GFR (Non-Af Amer) > 60 Glucose 91 Calcium 8.6 Magnesium 2.0 Transferrin Total Bilirubin 0.5 AST 27 ALT 40 Alkaline Phosphatase 44 Total Protein 5.9 L Albumin 3.4 L 12/06/16 22:00 Tracheal Aspirate Gram Stain - Final 12/06/16 22:00 Tracheal Aspirate Sputum Culture - Final NORMAL JUANA 12/06/16 12/07/16 12/07/16 19:34 01:32 03:53 Creatine Kinase 112 Troponin I < 0.012 < 0.012 Impressions: Head CT 12/06/16 12:10 IMPRESSION: 1. There is no acute intracranial pathology. 2. There is mild sinus disease. EVIDENCE OF ACUTE STROKE: NO. Chest X-Ray 12/08/16 06:00 IMPRESSION: NO ACUTE RADIOGRAPHIC FINDING IN THE CHEST. Assessment & Plan - Diagnosis (1) Acute respiratory failure Qualifiers: Respiratory failure complication: unspecified whether with hypoxia or hypercapnia Qualified Code(s): J96.00 - Acute respiratory failure, unspecified whether with hypoxia or hypercapnia Is this a current diagnosis for this admission?: Yes Plan: S/P Extubated 12/07/2017: Pt doing well. (2) Borderline personality disorder Is this a current diagnosis for this admission?: Yes (3) Seizure Is this a current diagnosis for this admission?: Yes Plan: Pt given IV Keppra 1000mg X 1 and IV keppra 500mg Q12 hours. (4) Intentional acetaminophen overdose Qualifiers: Encounter type: initial encounter Qualified Code(s): T39.1X2A - Poisoning by 4-Aminophenol derivatives, intentional self-harm, initial encounter Is this a current diagnosis for this admission?: Yes Plan: Pt liver function normal. Pt completed acetylcysteine. (5) Marijuana abuse Is this a current diagnosis for this admission?: Yes Plan: Patient will need to seek outpatient rehab treatment. (6) Polysubstance overdose Qualifiers: Encounter type: initial encounter Injury intent: undetermined intent Qualified Code(s): T50.904A - Poisoning by unspecified drugs, medicaments and biological substances, undetermined, initial encounter Is this a current diagnosis for this admission?: Yes Plan: Patient will need to seek outpatient rehab treatment. Psych has been consulted. (7) Possible seizure disorder Is this a current diagnosis for this admission?: Yes Plan: Pt placed on Keppra. (8) Suicide attempt Is this a current diagnosis for this admission?: Yes Plan: Patient has written a suicide letter. Psychiatry to evaluate patient. (9) Tobacco abuse Is this a current diagnosis for this admission?: Yes Plan: Encourage discontinuation patient of tobacco products (10) Thrombocytopenia Is this a current diagnosis for this admission?: Yes Plan: Improving. (11) Iron deficiency anemia Is this a current diagnosis for this admission?: Yes Plan: Will place on Iron replacement. (12) Hypokalemia Is this a current diagnosis for this admission?: Yes Plan: Will give additional potassium replacement.
[2016-12-08] MEDS ORDERED: POTASSIUM CHLORIDE 10 MEQ TABLET.SA PO ONE (15:00)
[2016-12-08] MEDS: LEVETIRACETAM 500 MG/NACL-ISO 500 MG/100 ML RTUPB IV SCH (23:23)
[2016-12-09 04:43] LABS: ALANINE AMINOTRANSFERASE 36 U/L (9-52); ALBUMIN 3.5 g/dL (3.5-5.0); ALKALINE PHOSPHATASE 45 U/L (38-126); ANION GAP 11 (5-19); ASPARTATE AMINO TRANSFERASE 25 U/L (14-36); BILIRUBIN,DIRECT 0.5 mg/dL (0.0-0.4); BILIRUBIN,TOTAL 0.5 mg/dL (0.2-1.3); BLOOD UREA NITROGEN 5 mg/dL (7-20); CARBON DIOXIDE 22 mmol/L (22-30); CHLORIDE 111 mmol/L (98-107); CREATININE RESULT 0.45 mg/dL (0.52-1.25); GLUCOSE 84 mg/dL (75-110); POTASSIUM 4.3 mmol/L (3.6-5.0); SODIUM 144.3 mmol/L (137-145); TOTAL PROTEIN 6.2 g/dL (6.3-8.2)
[2016-12-09] MEDS: LANSOPRAZOLE 30 MG TAB.RAP.DR PO SCH (05:23)
[2016-12-09 06:10] LABS: ABSOLUTE EOSINOPHILS # (AUTO) 0.1 10^3/uL (0.0-0.6); ABSOLUTE MONOCYTES (AUTO) 0.5 10^3/uL (0.1-1.4); ABSOLUTE NEUT (AUTO) 2.9 10^3/uL (1.7-8.2); BASOPHILS % (AUTO) 0.4 % (0-2); EOSINOPHILS % (AUTO) 2.6 % (0-6); HEMATOCRIT 31.2 % (36.0-47.0); HGB HCT DIFFERENCE 1.8; LYMPHOCYTES % (AUTO) 35.8 % (13-45); MEAN CORPUSCULAR HEMOGLOBIN 31.3 pg (27.0-33.4); MEAN CORPUSCULAR HGB CONC 35.3 g/dL (32.0-36.0); MEAN CORPUSCULAR VOLUME 89 fl (80-97); MONOCYTES % (AUTO) 8.7 % (3-13); RED BLOOD COUNT 3.51 10^6/uL (3.72-5.28); RED CELL DISTRIBUTION WIDTH 13.5 % (11.5-14.0); SEGMENTED NEUTROPHILS % (AUTO) 52.5 % (42-78); WHITE BLOOD COUNT 5.6 10^3/uL (4.0-10.5)
[2016-12-09] MEDS ORDERED: INFLUENZA ADLT QUAD (36MOS+) 2017-18 VAC 0.5 ML SYR IM PRN (09:30)
[2016-12-09] MEDS: DULOXETINE HCL 30 MG CAPSULE.DR PO SCH ×2 (10:06→22:41)
[2016-12-09] MEDS: LEVETIRACETAM 500 MG/NACL-ISO 500 MG/100 ML RTUPB IV SCH ×2 (10:06→22:42)
[2016-12-09] MEDS: CITALOPRAM HYDROBROMIDE 20 MG TABLET PO SCH (10:06)
[2016-12-09] MEDS: IRON SUCROSE COMPLEX INJ/PF 100 MG/5 ML SDV IV SCH (10:06)
--- NOTE | 2016-12-09 11:15 | RADIOLOGY REPORT (SQ) ---
EXAM DESCRIPTION: CHEST SINGLE VIEW COMPLETED DATE/TIME: 12/09/2016 10:57 am REASON FOR STUDY: resp failure COMPARISON: 12/08/2016 EXAM PARAMETERS: NUMBER OF VIEWS: One view. TECHNIQUE: Single frontal radiographic view of the chest acquired. RADIATION DOSE: NA LIMITATIONS: None. FINDINGS: LUNGS AND PLEURA: No opacities, masses or pneumothorax. No pleural effusion. MEDIASTINUM AND HILAR STRUCTURES: No masses. Contour normal. HEART AND VASCULAR STRUCTURES: Heart normal in size. Normal vasculature. BONES: No acute findings. HARDWARE: None in the chest. OTHER: No other significant finding. IMPRESSION: NO ACUTE RADIOGRAPHIC FINDING IN THE CHEST. TECHNICAL DOCUMENTATION: JOB ID: [id number]
--- NOTE | 2016-12-09 16:06 | PSYCHOLOGICAL NOTE ---
Psych Note - Psych Note Psych Note: Conducted chart review: Patient was seen by clinician Blessing Xiao 12/06-12/0812/06/2016 Collateral: Patient's brush filler handMalcolm [phone] states the patient has been residing in his home with his family since February. Works Manager reports over the past few days he is observed the patient seemingly altered. He states he confronted the patient about her presentation today and told her that she would no longer be able to stay in their home. Works Manager states he then observed the patient attempted to ingest large quantities of pills and he called 911. Works Manager states the patient's aunt last week which she did seem to handle fairly well. He reports they were extremely close, but patient was appropriate with her grief and did follow up [facility] [place]. He states her medications were managed by primary care provider in [facility]; however, patient was scheduled to see the psychiatrist at [facility] [place] December. Past reports the patient and her have been since February. He states that he has been entered drug rehab and when he returned they . Brandyn does report that he contacted patient's to make aware as they are still legally as well as patient's father in patient' s mother. Past reports the patient's father has custody and is raising patient' s youngest son. Father will reportedly visit later today once he finds childcare for the son. 12/07/2016 Patient was extubated There is a 2 page hand written goodbye letter to her sister in her chart presumably written prior to the overdose. 12/08/2016 Patient reportedly suffered a seizure this morning witnessed by medical staff and patient's brush filler hand. Evaluation Conducted 12/09/2016: Patient stated that she does not know how she arrived or why she is in [facility]. Patient continued to state that she did not know if she overdosed. Patient confirms mental health history of bipolar, PTSD, and anxiety. She continued to confirm she does have substance abuse history but was clean about 1 year ( patient's toxicology screening indicates patient is positive for opiates, barbiturates, methamphetamines, amphetamines, benzodiazepines, and marijuana; Patient confirms intentional use prior to current event but would not confirm intent). Patient states that she has been stressed out because her aunt unexpectedly. She continued to state that she has lost some cousins recently also from heroin overdose. Patient states she is not very close with her parents and lives with her brush filler hand and his who are like her mother and father. She states the last 4 days she has not been herself "I get manic sometimes." Patient states that she was told she did something but does not remember doing it. Patient was able to elaborate stating that she was told by the brush filler hand that she stole $30 however she states that she does not have any memory of this "if I did that it would be horrid." Patient continues to state that she does not think she wanted to hurt herself she wishes being vindictive. Patient is alert and orientated to person place time and circumstance. Mood is dysphoric with tearful affect. Patient denies suicidal attempt and reports suicidal gesture. Clinician notes patient wrote 2 pages letter to her sister saying corbin. ("I gave dad my word I would cut so alternate ways had to be put in place. I am sorry I could not cut it in this world, I just could not take the pain anymore.") Delusions are absent and behaviors congruent with intact reality based presentation i.e. organized, linear, rational thinking. Eye contact was fair. Intellectual abilities appear to be within the average range. Attention and concentration were good. Insight, judgment, impulse control is poor. Polysubstance abuse per history provided by patient 296.80 (F31.9) unspecified bipolar disorder per history provided by patient 309.81 (F43.10) posttraumatic stress disorder per history provided by patient Bereavement Impression\\plan: Patient is recommended to continue under IVC. Patient is unwilling or unable to discuss insight in events leading to current [facility] visit. Patient attempts to state she would never steal from her brush filler hand or his and that he would be "horrid" if she did however then stated that she was trying to be vindictive to them. Patient is suffered from significant loss from her aunt. Patient also composed a 2 page letter to her sister clearly outlining her intent of suicide. Patient will be reevaluated. Dr. Staton was consulted and the care management of this patient.
--- NOTE | 2016-12-09 17:10 | PDOC PROGRESS REPORT ---
Subjective Progress Note for:: 12/09/16 Subjective:: Patient states that she is doing better. Patient was asking when she would be able to go home. Nursing states that patient is waiting to be cleared medically for inpatient psych care Physical Exam Vital Signs: Temp Pulse Resp BP Pulse Ox 98.2 F 100 17 132/74 H 99 12/09/16 12:12 12/09/16 14:00 12/09/16 12:12 12/09/16 12:12 12/09/16 12:12 Intake & Output 12/08/16 12/09/16 12/10/16 06:59 06:59 06:59 Intake Total 3038 870 Output Total 5020 1060 Balance -1981 Weight 60.9 kg 62 kg General appearance: PRESENT: no acute distress, well-developed, well-nourished Head exam: PRESENT: atraumatic, normocephalic Eye exam: PRESENT: conjunctiva pink, EOMI. ABSENT: scleral icterus Ear exam: PRESENT: normal external ear exam Mouth exam: PRESENT: moist, tongue midline Neck exam: ABSENT: carotid bruit, JVD, lymphadenopathy, thyromegaly Respiratory exam: PRESENT: clear to auscultation janki. ABSENT: rales, rhonchi, wheezes Cardiovascular exam: PRESENT: RRR. ABSENT: diastolic murmur, rubs, systolic murmur Pulses: PRESENT: normal dorsalis pedis pul Vascular exam: PRESENT: normal capillary refill GI/Abdominal exam: PRESENT: normal bowel sounds, soft. ABSENT: distended, guarding, mass, organolmegaly, rebound, tenderness Rectal exam: PRESENT: deferred Extremities exam: PRESENT: full ROM. ABSENT: calf tenderness, clubbing, pedal edema Neurological exam: PRESENT: alert, awake, oriented to person, oriented to place , oriented to time, oriented to situation, CN II-XII grossly intact. ABSENT: motor sensory deficit Psychiatric exam: PRESENT: appropriate affect, normal mood. ABSENT: homicidal ideation, suicidal ideation Skin exam: PRESENT: dry, intact, warm. ABSENT: cyanosis, rash Results Laboratory Results: 12/09/16 05:41 12/09/16 03:52 12/09/16 12/09/16 12/09/16 03:52 03:52 05:41 WBC Cancelled 5.6 RBC Cancelled 3.51 L Hgb Cancelled 11.0 L Hct Cancelled 31.2 L MCV Cancelled 89 MCH Cancelled 31.3 MCHC Cancelled 35.3 RDW Cancelled 13.5 Plt Count Cancelled 161 Seg Neutrophils % Cancelled 52.5 Lymphocytes % Cancelled 35.8 Monocytes % Cancelled 8.7 Eosinophils % Cancelled 2.6 Basophils % Cancelled 0.4 Absolute Neutrophils Cancelled 2.9 Absolute Lymphocytes Cancelled 2.0 Absolute Monocytes Cancelled 0.5 Absolute Eosinophils Cancelled 0.1 Absolute Basophils Cancelled 0.0 Sodium 144.3 Potassium 4.3 Chloride 111 H Carbon Dioxide 22 Anion Gap 11 BUN 5 L Creatinine 0.45 L Est GFR ( Amer) > 60 Est GFR (Non-Af Amer) > 60 Glucose 84 Calcium 9.0 Total Bilirubin 0.5 AST 25 ALT 36 Alkaline Phosphatase 45 Total Protein 6.2 L Albumin 3.5 12/06/16 12/07/16 12/07/16 19:34 01:32 03:53 Creatine Kinase 112 Troponin I < 0.012 < 0.012 Impressions: Head CT 12/06/16 12:10 IMPRESSION: 1. There is no acute intracranial pathology. 2. There is mild sinus disease. EVIDENCE OF ACUTE STROKE: NO. Chest X-Ray 12/09/16 06:00 IMPRESSION: NO ACUTE RADIOGRAPHIC FINDING IN THE CHEST. Assessment & Plan - Diagnosis (1) Acute respiratory failure Qualifiers: Respiratory failure complication: unspecified whether with hypoxia or hypercapnia Qualified Code(s): J96.00 - Acute respiratory failure, unspecified whether with hypoxia or hypercapnia Is this a current diagnosis for this admission?: Yes Plan: S/P Extubated 12/07/2017 secondary to drug overdose intentional: Pt doing well. Resolved (2) Borderline personality disorder Is this a current diagnosis for this admission?: Yes Plan: Inpatient psych once patient medically clear (3) Seizure Is this a current diagnosis for this admission?: Yes Plan: Patient placed on Keppra. Patient has been seizure-free today. Will evaluate tomorrow. The patient has been seizure-free for 48 hours will clear patient medically for discharge. (4) Intentional acetaminophen overdose Qualifiers: Encounter type: initial encounter Qualified Code(s): T39.1X2A - Poisoning by 4-Aminophenol derivatives, intentional self-harm, initial encounter Is this a current diagnosis for this admission?: Yes Plan: Pt liver function normal. Pt completed acetylcysteine. (5) Marijuana abuse Is this a current diagnosis for this admission?: Yes Plan: Patient will need to seek outpatient rehab treatment. (6) Polysubstance overdose Qualifiers: Encounter type: initial encounter Injury intent: undetermined intent Qualified Code(s): T50.904A - Poisoning by unspecified drugs, medicaments and biological substances, undetermined, initial encounter Is this a current diagnosis for this admission?: Yes Plan: Patient will need to seek outpatient rehab treatment. Psych has been consulted. (7) Suicide attempt Is this a current diagnosis for this admission?: Yes Plan: Psych is waiting for patient to be medically clear so the patient can go to inpatient facility. If patient remains seizure-free for 48 hours will clear patient medically for discharge to inpatient psych. (8) Tobacco abuse Is this a current diagnosis for this admission?: Yes Plan: Encourage discontinuation patient of tobacco products (9) Thrombocytopenia Is this a current diagnosis for this admission?: Yes Plan: Improving. (10) Iron deficiency anemia Is this a current diagnosis for this admission?: Yes Plan: Will place on Iron replacement. (11) Hypokalemia Is this a current diagnosis for this admission?: Yes Plan: Resolved - Time Time Spent with patient: 15-24 minutes
[2016-12-10] MEDS: LANSOPRAZOLE 30 MG TAB.RAP.DR PO SCH (06:28)
[2016-12-10] MEDS: IRON SUCROSE COMPLEX INJ/PF 100 MG/5 ML SDV IV SCH (09:30)
[2016-12-10] MEDS: LEVETIRACETAM 500 MG/NACL-ISO 500 MG/100 ML RTUPB IV SCH ×2 (09:30→21:48)
[2016-12-10] MEDS: CITALOPRAM HYDROBROMIDE 20 MG TABLET PO SCH (09:30)
[2016-12-10] MEDS: DULOXETINE HCL 30 MG CAPSULE.DR PO SCH ×2 (09:30→21:48)
--- NOTE | 2016-12-10 16:17 | PDOC PROGRESS REPORT ---
Subjective Progress Note for:: 12/10/16 Subjective:: Patient seen earlier this morning. Patient was ambulating around room stating that she feels well. Physical Exam Vital Signs: Temp Pulse Resp BP Pulse Ox 98.4 F 72 14 125/73 97 12/10/16 03:34 12/10/16 03:34 12/10/16 03:34 12/10/16 03:34 12/10/16 03:34 Intake & Output 12/09/16 12/10/16 12/11/16 06:59 06:59 06:59 Intake Total 870 1280 Output Total 1060 550 Balance -190 730 Weight 62 kg 61.6 kg General appearance: PRESENT: no acute distress, well-developed, well-nourished Head exam: PRESENT: atraumatic, normocephalic Eye exam: PRESENT: conjunctiva pink, EOMI. ABSENT: scleral icterus Ear exam: PRESENT: normal external ear exam Mouth exam: PRESENT: moist, tongue midline Neck exam: ABSENT: carotid bruit, JVD, lymphadenopathy, thyromegaly Respiratory exam: PRESENT: clear to auscultation janki. ABSENT: rales, rhonchi, wheezes Cardiovascular exam: PRESENT: RRR. ABSENT: diastolic murmur, rubs, systolic murmur Pulses: PRESENT: normal dorsalis pedis pul Vascular exam: PRESENT: normal capillary refill GI/Abdominal exam: PRESENT: normal bowel sounds, soft. ABSENT: distended, guarding, mass, organolmegaly, rebound, tenderness Rectal exam: PRESENT: deferred Extremities exam: PRESENT: full ROM. ABSENT: calf tenderness, clubbing, pedal edema Neurological exam: PRESENT: alert, awake, oriented to person, oriented to place , oriented to time, oriented to situation, CN II-XII grossly intact. ABSENT: motor sensory deficit Psychiatric exam: PRESENT: appropriate affect, normal mood. ABSENT: homicidal ideation, suicidal ideation Skin exam: PRESENT: dry, intact, warm. ABSENT: cyanosis, rash Results Laboratory Results: 12/09/16 05:41 12/09/16 03:52 12/06/16 12/07/16 12/07/16 19:34 01:32 03:53 Creatine Kinase 112 Troponin I < 0.012 < 0.012 Impressions: Head CT 12/06/16 12:10 IMPRESSION: 1. There is no acute intracranial pathology. 2. There is mild sinus disease. EVIDENCE OF ACUTE STROKE: NO. Chest X-Ray 12/09/16 06:00 IMPRESSION: NO ACUTE RADIOGRAPHIC FINDING IN THE CHEST. Assessment & Plan - Diagnosis (1) Acute respiratory failure Qualifiers: Respiratory failure complication: unspecified whether with hypoxia or hypercapnia Qualified Code(s): J96.00 - Acute respiratory failure, unspecified whether with hypoxia or hypercapnia Is this a current diagnosis for this admission?: Yes Plan: S/P Extubated 12/07/2017 secondary to drug overdose intentional: Pt doing well. Resolved (2) Borderline personality disorder Is this a current diagnosis for this admission?: Yes Plan: per psych (3) Seizure Is this a current diagnosis for this admission?: Yes Plan: We will continue patient on Keppra. Patient has been seizure-free for 48 hours. Patient is medically cleared for transport to inpatient psych. (4) Intentional acetaminophen overdose Qualifiers: Encounter type: initial encounter Qualified Code(s): T39.1X2A - Poisoning by 4-Aminophenol derivatives, intentional self-harm, initial encounter Is this a current diagnosis for this admission?: Yes Plan: Pt liver function normal. Pt completed acetylcysteine. (5) Marijuana abuse Is this a current diagnosis for this admission?: Yes Plan: Inpatient psych patient is medically clear (6) Polysubstance overdose Qualifiers: Encounter type: initial encounter Injury intent: undetermined intent Qualified Code(s): T50.904A - Poisoning by unspecified drugs, medicaments and biological substances, undetermined, initial encounter Is this a current diagnosis for this admission?: Yes Plan: Inpatient psych. Patient is medically clear (7) Suicide attempt Is this a current diagnosis for this admission?: Yes Plan: Inpatient psych patient is medically clear. Patient has been seizure-free for 48 hours (8) Tobacco abuse Is this a current diagnosis for this admission?: Yes Plan: Encourage discontinuation patient of tobacco products (9) Thrombocytopenia Is this a current diagnosis for this admission?: Yes Plan: Resolved (10) Iron deficiency anemia Is this a current diagnosis for this admission?: Yes Plan: Patient receiving iron replacement and will be placed on p.o. iron today. (11) Hypokalemia Is this a current diagnosis for this admission?: Yes Plan: Resolved - Time Time Spent with patient: 15-24 minutes - Patient medically cleared for inpatient psych
[2016-12-11] MEDS: LANSOPRAZOLE 30 MG TAB.RAP.DR PO SCH (05:25)
[2016-12-11] MEDS: IRON SUCROSE COMPLEX INJ/PF 100 MG/5 ML SDV IV SCH (11:04)
[2016-12-11] MEDS: DULOXETINE HCL 30 MG CAPSULE.DR PO SCH (11:04)
[2016-12-11] MEDS: CITALOPRAM HYDROBROMIDE 20 MG TABLET PO SCH (11:05)
[2016-12-11] MEDS: LEVETIRACETAM 500 MG/NACL-ISO 500 MG/100 ML RTUPB IV SCH (11:06)
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
--- NOTE | 2016-12-11 14:18 | PSYCHOLOGICAL NOTE ---
Psych Note - Psych Note Psych Note: Patient disclosed that she just wants to be happy. Patient states that she is tired of feeling the way she is feeling. Patient was asked if she was ready to discuss her suicide letter; patient denies knowledge of any such. Clinician provided copy of patient's suicide letter. Patient read letter and disclose she has no memory of writing this but confirms it is in her handwriting. Patient states that she must realize on a subconscious level that she needs help. Patient states she does not does not want to feel this way anymore. Patient provided the name of her father Waldo Zavala as her point of contact and provided the #[phone]. Patient then confirms it is not her biological father it is her public health registrar. Patient requested a Bible. Patient is alert and orientated to person place time and circumstance. Mood is dysphoric with tearful affect. Patient denies suicidal attempt and reports suicidal gesture. Clinician notes patient wrote 2 pages letter to her sister saying amye. ("I gave dad my word I would cut so alternate ways had to be put in place. I am sorry I could not cut it in this world, I just could not take the pain anymore.") Delusions are absent and behaviors congruent with intact reality based presentation i.e. organized, linear, rational thinking. Eye contact was fair. Intellectual abilities appear to be within the average range. Attention and concentration were good. Insight, judgment, impulse control is poor. Polysubstance abuse per history provided by patient 296.80 (F31.9) unspecified bipolar disorder per history provided by patient 309.81 (F43.10) posttraumatic stress disorder per history provided by patient Bereavement Impression\\plan: Patient is recommended to continue under IVC. Patient is unwilling or unable to discuss insight in events leading to current [facility] visit and denies previous knowledge of her suicide letter. Patient is suffered from significant loss from her aunt and is possibly lossing her self-identified mother and father (her paster and his ). Patient composed a 2 page letter to her sister clearly outlining her intent of suicide. Patient will be reevaluated. Dr. Staton was consulted and the care management of this patient.
--- NOTE | 2016-12-11 16:50 | PSYCHOLOGICAL NOTE ---
Psych Note - Psych Note Psych Note: Patient was declined by [facility] for substance abuse. Behavioral health team provided medication recommendations to hospitalist. Chart review conducted no new acute concerns are noted. Patient will be reevaluated at a later time. Polysubstance abuse per history provided by patient 296.80 (F31.9) unspecified bipolar disorder per history provided by patient 309.81 (F43.10) posttraumatic stress disorder per history provided by patient Bereavement Impression\plan: Patient is recommended to continue under IVC. Patient is unwilling or unable to discuss insight in events leading to current [facility] visit and denies previous knowledge of her suicide letter. Patient is suffered from significant loss from her aunt and is possibly lossing her self-identified mother and father (her paster and his ). Patient composed a 2 page letter to her sister clearly outlining her intent of suicide. Patient will be reevaluated. Dr. Staton was consulted and the care management of this patient.
[2016-12-11] MEDS: LEVETIRACETAM 500 MG TABLET PO SCH (21:12)
[2016-12-11] MEDS: BUSPIRONE HCL 10 MG TABLET PO SCH (21:12)
[2016-12-12] MEDS ORDERED: CETIRIZINE 10 MG TABLET PO ONE (00:15)
[2016-12-12] MEDS: BENZOCAINE/MENTHOL SORE THROAT LOZENGE BUCCAL PRN ×5 (03:14→20:26)
[2016-12-12] MEDS: LANSOPRAZOLE 30 MG TAB.RAP.DR PO SCH (05:20)
[2016-12-12] MEDS: BUSPIRONE HCL 10 MG TABLET PO SCH ×3 (05:20→21:09)
[2016-12-12] MEDS: FLUTICASONE NASAL SPRAY 50 MCG/SPRY 120 SPRAY/16 GM NASL SCH ×2 (10:31→21:09)
[2016-12-12] MEDS: LEVETIRACETAM 500 MG TABLET PO SCH ×2 (10:32→21:09)
[2016-12-12] MEDS: IRON SUCROSE COMPLEX INJ/PF 100 MG/5 ML SDV IV SCH (10:32)
[2016-12-12] MEDS: VENLAFAXINE HCL 37.5 MG CAP.SR.24H PO SCH (10:32)
--- NOTE | 2016-12-12 10:58 | PDOC PROGRESS REPORT ---
Subjective Progress Note for:: 12/12/16 Subjective:: No new issues. Physical Exam Vital Signs: Temp Pulse Resp BP Pulse Ox 98.5 F 88 15 121/78 98 12/12/16 07:41 12/12/16 07:41 12/12/16 07:41 12/12/16 07:41 12/12/16 07:41 Intake & Output 12/11/16 12/12/16 12/13/16 06:59 06:59 06:59 Intake Total 1670 1527 Output Total 675 Balance 1670 852 Weight 61.6 kg 63.4 kg General appearance: PRESENT: no acute distress, well-developed, well-nourished Head exam: PRESENT: atraumatic, normocephalic Eye exam: PRESENT: conjunctiva pink, EOMI. ABSENT: scleral icterus Ear exam: PRESENT: normal external ear exam Mouth exam: PRESENT: moist, tongue midline Neck exam: ABSENT: carotid bruit, JVD, lymphadenopathy, thyromegaly Respiratory exam: PRESENT: clear to auscultation janki. ABSENT: rales, rhonchi, wheezes Cardiovascular exam: PRESENT: RRR. ABSENT: diastolic murmur, rubs, systolic murmur Pulses: PRESENT: normal dorsalis pedis pul Vascular exam: PRESENT: normal capillary refill GI/Abdominal exam: PRESENT: normal bowel sounds, soft. ABSENT: distended, guarding, mass, organolmegaly, rebound, tenderness Rectal exam: PRESENT: deferred Extremities exam: PRESENT: full ROM. ABSENT: calf tenderness, clubbing, pedal edema Neurological exam: PRESENT: alert, awake, oriented to person, oriented to place , oriented to time, oriented to situation, CN II-XII grossly intact. ABSENT: motor sensory deficit Psychiatric exam: PRESENT: appropriate affect, normal mood. ABSENT: homicidal ideation, suicidal ideation Skin exam: PRESENT: dry, intact, warm. ABSENT: cyanosis, rash Results Laboratory Results: 12/09/16 05:41 12/09/16 03:52 12/06/16 16:40 Blood Blood Culture - Final NO GROWTH IN 5 DAYS 12/06/16 16:00 Blood Blood Culture - Final NO GROWTH IN 5 DAYS 12/06/16 12/07/16 12/07/16 19:34 01:32 03:53 Creatine Kinase 112 Troponin I < 0.012 < 0.012 Impressions: Head CT 12/06/16 12:10 IMPRESSION: 1. There is no acute intracranial pathology. 2. There is mild sinus disease. EVIDENCE OF ACUTE STROKE: NO. Chest X-Ray 12/09/16 06:00 IMPRESSION: NO ACUTE RADIOGRAPHIC FINDING IN THE CHEST. Assessment & Plan - Diagnosis (1) Acute respiratory failure Qualifiers: Respiratory failure complication: unspecified whether with hypoxia or hypercapnia Qualified Code(s): J96.00 - Acute respiratory failure, unspecified whether with hypoxia or hypercapnia Is this a current diagnosis for this admission?: Yes Plan: S/P Extubated 12/07/2017 secondary to drug overdose intentional: Pt doing well. Resolved (2) Borderline personality disorder Is this a current diagnosis for this admission?: Yes Plan: per psych (3) Seizure Is this a current diagnosis for this admission?: Yes Plan: We will continue patient on Keppra. Patient has been seizure-free for 48 hours. Patient is medically cleared for transport to inpatient psych. (4) Intentional acetaminophen overdose Qualifiers: Encounter type: initial encounter Qualified Code(s): T39.1X2A - Poisoning by 4-Aminophenol derivatives, intentional self-harm, initial encounter Is this a current diagnosis for this admission?: Yes Plan: Pt liver function normal. Pt completed acetylcysteine. (5) Marijuana abuse Is this a current diagnosis for this admission?: Yes Plan: Inpatient psych patient is medically clear (6) Polysubstance overdose Qualifiers: Encounter type: initial encounter Injury intent: undetermined intent Qualified Code(s): T50.904A - Poisoning by unspecified drugs, medicaments and biological substances, undetermined, initial encounter Is this a current diagnosis for this admission?: Yes Plan: Inpatient psych. Patient is medically clear (7) Suicide attempt Is this a current diagnosis for this admission?: Yes Plan: Inpatient psych patient is medically clear. Patient has been seizure-free for 48 hours (8) Tobacco abuse Is this a current diagnosis for this admission?: Yes Plan: Encourage discontinuation patient of tobacco products (9) Thrombocytopenia Is this a current diagnosis for this admission?: Yes Plan: Resolved (10) Iron deficiency anemia Is this a current diagnosis for this admission?: Yes Plan: Patient receiving iron replacement and will be placed on p.o. iron. (11) Hypokalemia Is this a current diagnosis for this admission?: Yes Plan: Resolved - Time Time Spent with patient: Less than 15 minutes
[2016-12-12] MEDS: NAPROXEN 250 MG TABLET PO PRN (12:55)
--- NOTE | 2016-12-12 15:40 | PSYCHOLOGICAL NOTE ---
Psych Note - Psych Note Psych Note: Conducted check in with patient who is a 31-year-old [facility]. [facility] due to polypharmacy overdose. A suicide note was found; however, patient has been denying writing a suicide note and further denied remembering doing so. Patient was provided a copy of this note by another clinician and continued to deny. Patient today states she knows what the notice from. Patient reports when she was in treatment at [facility] she was encouraged to write a note to her sister as though she was as a sort of therapeutic exercise. Patient today states if she were discharged she would go home to whom she identifies as her father, her physiatrist Malcolm. She states that is her family and she is going to be allowed to stay there indefinitely. Patient states she feels "great," and states she "feels for the first time in a long time." Patient clarified by stating she feels emotions and is overjoyed. Patient states she has been communicating with her and sees him as an inspiration. Patient is noted to be restless, moving around the room, and hyperverbal. Patient is alert and oriented. Mood is euphoric/manic with smiling and occasionally tearful affect. Patient denies suicidal/homicidal ideations, intent, plan, means. Patient denies A/VH; Delusions not noted. Thought processes were tangential. Conversational speech was pressured for rate, tone, and prosody. Intellectual abilities were estimated within average range. Attention and focus were poor. Insight, judgment, impulse control are poor. Polysubstance abuse per history provided by patient 296.80 (F31.9) unspecified bipolar disorder per history provided by patient 309.81 (F43.10) posttraumatic stress disorder per history provided by patient Bereavement Impression\\plan: Patient is recommended to continue under IVC. Patient presents manic at this time with limited insight and impaired judgment making abilities. This places patient at risk for further episode possibly life- threatening. Patient is considered a danger to herself and possibly others given her manic state. I consulted with Dr. Staton in regards to the care and management of this patient.
[2016-12-12] MEDS: CETIRIZINE 10 MG TABLET PO SCH (21:09)
[2016-12-13] MEDS: BENZOCAINE/MENTHOL SORE THROAT LOZENGE BUCCAL PRN ×5 (00:07→18:58)
[2016-12-13] MEDS: LANSOPRAZOLE 30 MG TAB.RAP.DR PO SCH (06:15)
[2016-12-13] MEDS: BUSPIRONE HCL 10 MG TABLET PO SCH (06:15)
[2016-12-13] MEDS: FLUTICASONE NASAL SPRAY 50 MCG/SPRY 120 SPRAY/16 GM NASL SCH ×2 (10:28→21:10)
[2016-12-13] MEDS: VENLAFAXINE HCL 37.5 MG CAP.SR.24H PO SCH (10:28)
[2016-12-13] MEDS: LEVETIRACETAM 500 MG TABLET PO SCH ×2 (10:29→21:07)
--- NOTE | 2016-12-13 11:19 | PDOC PROGRESS REPORT ---
Subjective Progress Note for:: 12/13/16 Subjective:: Pt upset this morning because she wants to go home. Pt states that she is feeling better. Physical Exam Vital Signs: Temp Pulse Resp BP Pulse Ox 98.2 F 103 H 16 110/74 99 12/13/16 07:32 12/13/16 07:32 12/13/16 07:32 12/13/16 07:32 12/13/16 07:32 Intake & Output 12/12/16 12/13/16 12/14/16 06:59 06:59 06:59 Intake Total 1527 2100 Output Total 675 Balance 852 2100 Weight 63.4 kg 63.4 kg General appearance: PRESENT: no acute distress, well-developed, well-nourished Head exam: PRESENT: atraumatic, normocephalic Eye exam: PRESENT: conjunctiva pink, EOMI. ABSENT: scleral icterus Ear exam: PRESENT: normal external ear exam Mouth exam: PRESENT: moist, tongue midline Neck exam: ABSENT: carotid bruit, JVD, lymphadenopathy, thyromegaly Respiratory exam: PRESENT: clear to auscultation janki. ABSENT: rales, rhonchi, wheezes Cardiovascular exam: PRESENT: RRR. ABSENT: diastolic murmur, rubs, systolic murmur Pulses: PRESENT: normal dorsalis pedis pul Vascular exam: PRESENT: normal capillary refill GI/Abdominal exam: PRESENT: normal bowel sounds, soft. ABSENT: distended, guarding, mass, organolmegaly, rebound, tenderness Rectal exam: PRESENT: deferred Extremities exam: PRESENT: full ROM. ABSENT: calf tenderness, clubbing, pedal edema Neurological exam: PRESENT: alert, awake, oriented to person, oriented to place , oriented to time, oriented to situation, CN II-XII grossly intact. ABSENT: motor sensory deficit Psychiatric exam: PRESENT: agitated, manic Skin exam: PRESENT: dry, intact, warm. ABSENT: cyanosis, rash Results Laboratory Results: 12/09/16 05:41 12/09/16 03:52 12/06/16 12/07/16 12/07/16 19:34 01:32 03:53 Creatine Kinase 112 Troponin I < 0.012 < 0.012 Impressions: Head CT 12/06/16 12:10 IMPRESSION: 1. There is no acute intracranial pathology. 2. There is mild sinus disease. EVIDENCE OF ACUTE STROKE: NO. Chest X-Ray 12/09/16 06:00 IMPRESSION: NO ACUTE RADIOGRAPHIC FINDING IN THE CHEST. Assessment & Plan - Diagnosis (1) Bipolar 1 disorder Is this a current diagnosis for this admission?: Yes Plan: Pt started on Zyprexa per Mental Health recommendations. (2) Acute respiratory failure Qualifiers: Respiratory failure complication: unspecified whether with hypoxia or hypercapnia Qualified Code(s): J96.00 - Acute respiratory failure, unspecified whether with hypoxia or hypercapnia Is this a current diagnosis for this admission?: Yes Plan: S/P Extubated 12/07/2017 secondary to drug overdose intentional: Pt doing well. Resolved (3) Borderline personality disorder Is this a current diagnosis for this admission?: Yes Plan: per psych (4) Seizure Is this a current diagnosis for this admission?: Yes Plan: We will continue patient on Keppra. Patient has been seizure-free for 48 hours. Patient is medically cleared for transport to inpatient psych. (5) Intentional acetaminophen overdose Qualifiers: Encounter type: initial encounter Qualified Code(s): T39.1X2A - Poisoning by 4-Aminophenol derivatives, intentional self-harm, initial encounter Is this a current diagnosis for this admission?: Yes Plan: Pt liver function normal. Pt completed acetylcysteine. (6) Marijuana abuse Is this a current diagnosis for this admission?: Yes Plan: Inpatient psych patient is medically clear (7) Polysubstance overdose Qualifiers: Encounter type: initial encounter Injury intent: undetermined intent Qualified Code(s): T50.904A - Poisoning by unspecified drugs, medicaments and biological substances, undetermined, initial encounter Is this a current diagnosis for this admission?: Yes Plan: Inpatient psych. Patient is medically clear (8) Suicide attempt Is this a current diagnosis for this admission?: Yes Plan: Inpatient psych patient is medically clear. Patient has been seizure-free for 48 hours (9) Tobacco abuse Is this a current diagnosis for this admission?: Yes Plan: Encourage discontinuation patient of tobacco products (10) Thrombocytopenia Is this a current diagnosis for this admission?: Yes Plan: Resolved (11) Iron deficiency anemia Is this a current diagnosis for this admission?: Yes Plan: Patient receiving iron replacement and will be placed on p.o. iron. (12) Hypokalemia Is this a current diagnosis for this admission?: Yes Plan: Resolved - Time Time Spent with patient: 15-24 minutes
[2016-12-13] MEDS ORDERED: FLUOXETINE HCL 20 MG CAPSULE PO ONE (13:00)
[2016-12-13] MEDS ORDERED: OLANZAPINE 2.5 MG TABLET PO ONE (13:30)
[2016-12-13] MEDS ORDERED: DIPHENHYDRAMINE HCL 50 MG CAPSULE PO ONE (15:00)
[2016-12-13] MEDS ORDERED: CEPHALEXIN 500 MG CAPSULE PO ONE (15:00)
--- NOTE | 2016-12-13 15:53 | PSYCHOLOGICAL NOTE ---
Psych Note - Psych Note Psych Note: Conducted chart review to assess patient's presentation and current needs. Medication recommendations from the psychiatric prescribing provider contracted with [facility] were provided to the hospitalist this morning who states they will be ordered today. Discussed that the Zyprexa will hopefully address her mood lability and current euphoric/manic state. Waldo states at this time he does not feel the patient is ready to return home , or leave this facility. He states he has had the opportunity to speak with her and visit her this time does not feel she is stable to leave this facility and/or return home. She said he states her mood was elevated and unrealistic in regards to expectations upon discharge. Brandyn reports he is and route to visit with the patient along with his daughter and will speak with her regarding a potential discharge plan which likely does not include his home. Discussed with posture that all inpatient facilities have denied the patient due to either her substance abuse history, her current acuity, or the facilities current acuity. Did request the informatica mdm architect return contact as soon as possible to notify this department of his intent regarding accepting the patient back into his home so discharge planning and may occur and identify either a bed at the homeless [facility] and/or attempt to secure a bed in a sober living facility. Patient will be reevaluated tomorrow morning for further disposition and assistance with discharge planning. Patient is recommended to remain under involuntary commitment to allow for new medications to reach a therapeutic level within the patient's system to efficaciously address her padmaja and attempt to prevent further episode. I consulted with Dr. Staton in regards to the care management of this patient. Contacted patient's RN, Eve and made aware the informatica mdm architect was and route to visit to discuss with the patient discharge plans which likely did not include his home. RN advised the patient may become upset. RN advised regarding the plan of care. Polysubstance abuse per history provided by patient 296.80 (F31.9) unspecified bipolar disorder per history provided by patient 309.81 (F43.10) posttraumatic stress disorder per history provided by patient Bereavement
[2016-12-13] MEDS: NAPROXEN 250 MG TABLET PO PRN (17:38)
[2016-12-13] MEDS: OLANZAPINE 2.5 MG TABLET PO SCH (17:38)
[2016-12-13] MEDS: CEPHALEXIN 500 MG CAPSULE PO SCH (21:07)
[2016-12-13] MEDS: CETIRIZINE 10 MG TABLET PO SCH (21:08)
[2016-12-13] MEDS ORDERED: DIPHENHYDRAMINE HCL 50 MG CAPSULE PO SCH (22:00)
[2016-12-14] MEDS: LANSOPRAZOLE 30 MG TAB.RAP.DR PO SCH (05:37)
[2016-12-14] MEDS: CEPHALEXIN 500 MG CAPSULE PO SCH (05:37)
[2016-12-14] MEDS ORDERED: FLUOXETINE HCL 20 MG CAPSULE PO SCH (10:00)
[2016-12-14] MEDS: LEVETIRACETAM 500 MG TABLET PO SCH (10:24)
[2016-12-14] MEDS: OLANZAPINE 2.5 MG TABLET PO SCH (10:24)
[2016-12-14] MEDS: NAPROXEN 250 MG TABLET PO PRN (10:24)
[2016-12-14] MEDS: BENZOCAINE/MENTHOL SORE THROAT LOZENGE BUCCAL PRN (10:25)
[2016-12-14] MEDS: FLUTICASONE NASAL SPRAY 50 MCG/SPRY 120 SPRAY/16 GM NASL SCH (10:25)
[2016-12-14 12:59] VITALS: BP 111/88
--- NOTE | 2016-12-14 13:01 | PSYCHOLOGICAL NOTE ---
Psych Note - Psych Note Psych Note: Conducted check in with patient who is a 31-year-old female who was admitted last week to [facility] hospitalist services due to intentional overdose. Patient today continues to denies suicidal ideations. Patient is noted to be calmer and cooperative and not displaying signs and symptoms of padmaja to the same degree as yesterday. Patient states she does plan to return to her floor scraper's home who will assist her in following up. Patient reports she has a medication management appointment with a psychiatric provider in [place] this at a helping hand. Patient states she is agreeable to her floor scraper to manage her medications and provide her doses as they are due. Patient is to have no access to medications of any kind. Field Crop Technical Officer Malcolm [phone]: States he and his family did talk last night and are in agreement for the patient to return to his home although he states this will not be for an indefinite amount of time. Past reports he is in agreement to monitor patient's, but all medications in the home in a lock box, and assist her in following up with her outpatient provider. He reported no concerns. Patient is alert and oriented. Mood is calmer though reported as anxious by the patient with smiling affect. Patient denies suicidal/homicidal ideations, intent, plan, means. Patient denies A/VH; delusions not noted. Thought processes were organized and linear. Conversational speech was fast for rate, tone, and prosody. Intellectual abilities were estimated within average range. Attention and focus were fair. Insight, judgment, impulse control are fair. Polysubstance abuse per history provided by patient 296.80 (F31.9) unspecified bipolar disorder per history provided by patient 309.81 (F43.10) posttraumatic stress disorder per history provided by patient Bereavement Patient is psychiatrically cleared for discharge. Patient is recommended to keep her appointment with a helping hand in [place] this December 16. Patient and her floor scraper with whom she resides are in agreement to the above- noted plan of care and safety precautions. Patient is in agreement to have no access supervised or unsupervised to medications, to include [id number] and prescription. I consulted with Dr. Staton in regards to the care and management of this patient. Patient continues to denies suicidal ideations. Spoke with hospitalist Evaristo who reports she is in agreement and will provide patient prescriptions for her Zyprexa and Prozac for continuity of care.
--- NOTE | 2016-12-14 20:33 | PDOC DISCHARGE SUMMARY ---
General - Admit/Disc Date/PCP Admission Date/Primary Care Provider: 12/06/16 13:36 [facility] psychiatry in [facility] Discharge Date: 12/14/16 - Discharge Diagnosis (1) Acute respiratory failure Is this a current diagnosis for this admission?: Yes Summary: Secondary to drug overdose requiring mechanical ventilation in the ICU. She was successfully extubated and her acute respiratory failure is resolved. (2) Intentional acetaminophen overdose Is this a current diagnosis for this admission?: Yes (3) Polysubstance overdose Is this a current diagnosis for this admission?: Yes (4) Marijuana abuse Is this a current diagnosis for this admission?: Yes (5) Bipolar 1 disorder Is this a current diagnosis for this admission?: Yes (6) Borderline personality disorder Is this a current diagnosis for this admission?: Yes (7) Hypokalemia Is this a current diagnosis for this admission?: Yes (8) Iron deficiency anemia Is this a current diagnosis for this admission?: Yes (9) Suicide attempt Is this a current diagnosis for this admission?: Yes Summary: The patient was placed under IVC papers and was followed by psychiatry here in the hospital. She was cleared by psychiatry for discharge today. Her medications have been adjusted. She will follow up with [facility] psychiatry in [place] at the end of the week. She will be receiving psychiatric care as well as ongoing counseling.The patient was placed under IVC papers and was followed by psychiatry here in the hospital. She was cleared by psychiatry for discharge today. Her medications have been adjusted. She will follow up with [facility] psychiatry in [place] at the end of the week. She will be receiving psychiatric care as well as ongoing counseling. - Additional Information Resuscitation Status: Full Code Discharge Diet: Regular Discharge Activity: Activity As Tolerated, Balance Activity w/Rest, Slowly Increase Activity Home Medications: Cephalexin Monohydrate [Keflex 500 mg Capsule] 500 mg PO Q8 #20 capsule Cetirizine HCl [Zyrtec 10 mg Tablet] 10 mg PO QHS #30 tablet 12/14/16 Diphenhydramine HCl [Benadryl 50 mg Capsule] 50 mg PO QHS capsule 12/14/16 Fluoxetine HCl [Prozac 20 mg Capsule] 20 mg PO DAILY #30 capsule 12/14/16 Fluticasone Propionate [Flonase Nasal Warba 50 Mcg/Warba 16 gm] 1 spray NASL Q12 #1 spray.pump 12/14/16 Levetiracetam [Keppra 500 mg Tablet] See Protocol PO Q12 #75 tablet 12/14/16 Olanzapine [Zyprexa 2.5 mg Tablet] 2.5 mg PO BID #60 tablet 12/14/16 History of Present Illness History of Present Illness: ASCHI WHITE is a 31 year old female who presented to the emergency room after having a drug overdose and respiratory failure Hospital Course Hospital Course: Please see complete medical record for details. This was a prolonged hospitalization and this will be a brief summary. The patient is an unfortunate 31-year-old female with a history of borderline personality disorder as well as bipolar disorder. She has a history of polysubstance abuse. She presented to the emergency room obtunded after taking a handful of pills. The patient lives with her advisor consultant who reports that they had an argument and she took the pills. He called EMS. The patient had no response to Narcan. In the emergency room she was found to be lethargic and having difficulty maintaining her airway and she was subsequently intubated. She was successfully extubated the next day. She was seen by psychiatry. Over the course of the hospitalization she improved but was kept under involuntary commitment papers. Overall she is improved and she was cleared by psychiatry for discharge today. She has outpatient follow-up with psychiatry and counseling at the [facility] in [facility]. She will be discharged home today in stable condition. Physical Exam Vital Signs: Temp Pulse Resp BP Pulse Ox 97.8 F 106 H 18 111/88 H 99 12/14/16 12:58 12/14/16 12:58 12/14/16 12:58 12/14/16 12:58 12/14/16 12:58 Intake & Output 12/13/16 12/14/16 12/15/16 06:59 06:59 06:59 Intake Total 2100 1010 Balance 2100 1010 Weight 63.4 kg 63.4 kg General appearance: PRESENT: no acute distress, well-developed, well-nourished Head exam: PRESENT: atraumatic, normocephalic Ear exam: PRESENT: normal external ear exam Mouth exam: PRESENT: moist, tongue midline Neck exam: ABSENT: carotid bruit, JVD, lymphadenopathy, thyromegaly Respiratory exam: PRESENT: clear to auscultation janki. ABSENT: rales, rhonchi, wheezes Cardiovascular exam: PRESENT: RRR. ABSENT: diastolic murmur, rubs, systolic murmur Pulses: PRESENT: normal dorsalis pedis pul GI/Abdominal exam: PRESENT: normal bowel sounds, soft. ABSENT: distended, guarding, mass, organolmegaly, rebound, tenderness Rectal exam: PRESENT: deferred Extremities exam: PRESENT: full ROM. ABSENT: calf tenderness, clubbing, pedal edema Neurological exam: PRESENT: alert, awake, oriented to person, oriented to place , oriented to time, oriented to situation, CN II-XII grossly intact. ABSENT: motor sensory deficit Psychiatric exam: PRESENT: anxious, manic Focused psych exam: PRESENT: restlessness Skin exam: PRESENT: dry, intact, warm. ABSENT: cyanosis, rash Results Laboratory Results: 12/09/16 05:41 12/09/16 03:52 12/06/16 12/07/16 12/07/16 19:34 01:32 03:53 Creatine Kinase 112 Troponin I < 0.012 < 0.012 Impressions: Head CT 12/06/16 12:10 IMPRESSION: 1. There is no acute intracranial pathology. 2. There is mild sinus disease. EVIDENCE OF ACUTE STROKE: NO. Chest X-Ray 12/09/16 06:00 IMPRESSION: NO ACUTE RADIOGRAPHIC FINDING IN THE CHEST. Qualifiers PATEINT BEING DISCHARGED WITH ANY OF THE FOLLOWING DIAGNOSIS?: No Plan Time Spent: Greater than 30 Minutes
== END 2016-12-14 12:59 | disposition home or self-care (01) | DRG 917 ==
LOC: ER 11:48 → EH 13:36 → ICU 15:37 → 5 12-07 23:40
PROVIDERS: ADMIT Family Medicine; ATTEND Family Medicine
PROC: 5A1935Z Respiratory Ventilation, Less than 24 Consecutive Hours (ICD-10-PCS; principal; 2016-12-06)
PROC: 0BH17EZ Insertion of Endotracheal Airway into Trachea, Via Natural or Artificial Opening (ICD-10-PCS; 2016-12-06)
PROC: 3E0F73Z Introduction of Anti-inflammatory into Respiratory Tract, Via Natural or Artificial Opening (ICD-10-PCS; 2016-12-06)
DX: T39.1X2A Poisoning by 4-Aminophenol derivatives, intentional self-harm, initial encounter (principal); J96.00 Acute respiratory failure, unspecified whether with hypoxia or hypercapnia; T40.602A Poisoning by unspecified narcotics, intentional self-harm, initial encounter; T42.4X2A Poisoning by benzodiazepines, intentional self-harm, initial encounter; T43.622A Poisoning by amphetamines, intentional self-harm, initial encounter; F12.10 Cannabis abuse, uncomplicated; F31.9 Bipolar disorder, unspecified; F60.3 Borderline personality disorder; E87.6 Hypokalemia; D50.9 Iron deficiency anemia, unspecified; F19.10 Other psychoactive substance abuse, uncomplicated; F43.10 Post-traumatic stress disorder, unspecified; F41.9 Anxiety disorder, unspecified; F17.210 Nicotine dependence, cigarettes, uncomplicated; G40.909 Epilepsy, unspecified, not intractable, without status epilepticus; D69.6 Thrombocytopenia, unspecified; Z79.899 Other long term (current) drug therapy; Z78.1 Physical restraint status; Z91.5 Personal history of self-harm; Z63.0 Problems in relationship with spouse or partner; Z88.8 Allergy status to other drugs, medicaments and biological substances; Z88.6 Allergy status to analgesic agent; Z91.040 Latex allergy status
CPT/HCPCS: 36415; 36600; 70450; 71010; 80048; 80053; 80177; 80185; 80307; 81001; 82330; 82550; 82607; 82728; 82746; 82803; 83540; 83550; 83605; 83690; 83735; 84100; 84443; 84466; 84478; 84484; 84703; 85025; 85045; 85610; 87040; 87070; 87086; 87205; 93005; 93010; 94002; 94003; 96374; 99291; G0480; J0132; J1630; J1756; J1953; J2060; J2250; J2310; J2704; J3480; J3490; J7030; J7060; S0028

== ENCOUNTER 2017-10-05 22:08 | Emergency (ER) | payer MEDICAID ==
[2017-10-05 22:31] LABS: ABSOLUTE BASOPHILS # (AUTO) 0.1 10^3/uL (0.0-0.2); ABSOLUTE LYMPHOCYTES (AUTO) 1.9 10^3/uL (0.5-4.7); ABSOLUTE MONOCYTES (AUTO) 0.5 10^3/uL (0.1-1.4); ABSOLUTE NEUT (AUTO) 6.2 10^3/uL (1.7-8.2); BASOPHILS % (AUTO) 0.7 % (0-2); EOSINOPHILS % (AUTO) 0.6 % (0-6); HEMOGLOBIN 11.4 g/dL (12.0-15.5); LYMPHOCYTES % (AUTO) 21.9 % (13-45); MEAN CORPUSCULAR HGB CONC 34.6 g/dL (32.0-36.0); MEAN CORPUSCULAR VOLUME 89 fl (80-97); MONOCYTES % (AUTO) 6.1 % (3-13); PLATELET COUNT 193 10^3/uL (150-450); RED BLOOD COUNT 3.69 10^6/uL (3.72-5.28); RED CELL DISTRIBUTION WIDTH 13.4 % (11.5-14.0); SEGMENTED NEUTROPHILS % (AUTO) 70.7 % (42-78); TOTAL CELLS COUNTED % (AUTO) 100 %; WHITE BLOOD COUNT 8.7 10^3/uL (4.0-10.5)
[2017-10-05 22:52] LABS: ANION GAP 12 (5-19); BLOOD UREA NITROGEN 11 mg/dL (7-20); CARBON DIOXIDE 21 mmol/L (22-30); CHLORIDE 109 mmol/L (98-107); GLUCOSE 103 mg/dL (75-110); POTASSIUM 3.7 mmol/L (3.6-5.0); SODIUM 141.8 mmol/L (137-145)
[2017-10-05 22:55] LABS: ALCOHOL < 10 mg/dL (NONE DETECTED)
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
[2017-10-05 23:38] VITALS: BP 125/80
== END 2017-10-06 00:49 | disposition home or self-care (01) ==
LOC: ER 22:08
DX: R51 Headache (principal); M54.2 Cervicalgia; M54.9 Dorsalgia, unspecified; G40.909 Epilepsy, unspecified, not intractable, without status epilepticus; F12.90 Cannabis use, unspecified, uncomplicated; Y04.0XXA Assault by unarmed brawl or fight, initial encounter; Z79.899 Other long term (current) drug therapy
CPT/HCPCS: 36415; 70450; 72125; 72128; 72131; 80048; 80307; 83735; 84703; 85025; 99285

== ENCOUNTER 2019-08-15 15:13 | Emergency (ER) | payer SELFPAY ==
[2019-08-15 16:11] LABS: ABSOLUTE EOSINOPHILS # (AUTO) 0.1 10^3/uL (0.0-0.6); ABSOLUTE LYMPHOCYTES (AUTO) 2.3 10^3/uL (0.5-4.7); ABSOLUTE MONOCYTES (AUTO) 0.8 10^3/uL (0.1-1.4); ABSOLUTE NEUT (AUTO) 7.3 10^3/uL (1.7-8.2); BASOPHILS % (AUTO) 0.3 % (0-2); EOSINOPHILS % (AUTO) 0.9 % (0-6); HEMATOCRIT 29.8 % (36.0-47.0); HEMOGLOBIN 10.4 g/dL (12.0-15.5); LYMPHOCYTES % (AUTO) 21.9 % (13-45); MEAN CORPUSCULAR VOLUME 86 fl (80-97); MONOCYTES % (AUTO) 7.9 % (3-13); PLATELET COUNT 265 10^3/uL (150-450); RED BLOOD COUNT 3.47 10^6/uL (3.72-5.28); RED CELL DISTRIBUTION WIDTH 13.1 % (11.5-14.0); TOTAL CELLS COUNTED % (AUTO) 100 %; WHITE BLOOD COUNT 10.6 10^3/uL (4.0-10.5)
[2019-08-15 16:32] LABS: ALBUMIN 3.8 g/dL (3.5-5.0); ALKALINE PHOSPHATASE 47 U/L (38-126); ANION GAP 6 (5-19); ASPARTATE AMINO TRANSFERASE 20 U/L (14-36); BILIRUBIN,TOTAL 0.3 mg/dL (0.2-1.3); BLOOD UREA NITROGEN 13 mg/dL (7-20); CALCIUM 9.2 mg/dL (8.4-10.2); CARBON DIOXIDE 23 mmol/L (22-30); CHLORIDE 103 mmol/L (98-107); GLUCOSE 95 mg/dL (75-110); POTASSIUM 4.1 mmol/L (3.6-5.0); SALICYLATE 6.5 mg/dL (2.0-20.0); TOTAL PROTEIN 6.7 g/dL (6.3-8.2)
[2019-08-15 16:33] LABS: ACETAMINOPHEN < 10 ug/mL (10-30); ALCOHOL < 10 mg/dL (NONE DETECTED)
--- NOTE | 2019-08-15 16:39 | ER Document Report ---
Doctor's Note Notes: 08/15/19 16:37 I clicked into this patient's chart by accident. I did not initially see the note stating the patient had eloped until after I did collect an. Therefore I am during this note to explain why I had clicked on the chart. I am told by nursing that patient left and was attempted to be stopped by security but was unable to be detained.
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
--- NOTE | 2019-08-16 10:00 | EKG REPORT ---
SEVERITY:- OTHERWISE NORMAL ECG - SINUS TACHYCARDIA : Confirmed by: Eboni Allen 16-Aug-2019 09:58:56
== END 2019-08-15 16:35 | disposition left against medical advice (07) ==
LOC: ER 15:13
DX: O99.341 Other mental disorders complicating pregnancy, first trimester (principal); F31.9 Bipolar disorder, unspecified; F41.9 Anxiety disorder, unspecified; F43.10 Post-traumatic stress disorder, unspecified; O26.891 Other specified pregnancy related conditions, first trimester; R56.9 Unspecified convulsions; Z79.899 Other long term (current) drug therapy; Z91.14 Patient's other noncompliance with medication regimen; Z3A.09 9 weeks gestation of pregnancy
CPT/HCPCS: 36415; 80053; 80307; 84703; 85025; 93005; 93010